=== PATIENT | male | born 1970 | race Caucasian/White ===

== ENCOUNTER 2017-02-23 21:38 | Observation (INO) | payer MEDICAID ==
[~2017-02-23] VITALS: Ht 182.9 cm; Wt 84.9 kg
[2017-02-23 21:39] VITALS: BP 153/93
--- OUTSIDE RECORDS SUMMARY | 2017-02-23 22:09 | External Medical Summary Rpt ---
Author Author [facility] Organization [facility] Address Unknown Phone Unavailable Care Team Providers Care Chute Puller Name Role Phone DR DINORA PCP [phone] Encounter [facility] [id number] Date(s): 10/08/16 - 10/08/[address] [facility] [address] [place] [address]- Discharge Diagnosis: Chest pain Discharge Disposition: OP Self Care or Home Attending Physician: CARLOS AKHTAR MD Admitting Physician: CARLOS AKHTAR MD Referring Physician: CARLOS AKHTAR MD Reason for Visit CP. HEART PT Vital Signs Most recent 1 2 3 to oldest [Reference Range]: Temperature Oral Source (10/08/16 11:34 AM) Temperature Fahrenheit Mode (10/08/16 11:34 AM) Temperature, 97.8 Deg F Fahrenheit (10/08/16 11:34 AM) [96.8-99.7 Deg F] Clinical 36.6 Deg C Temperature, (10/08/16 11:34 AM) C Peripheral 96 bpm Pulse Rate (10/08/16 11:34 AM) [60-100 bpm] Heart Rate 66 bpm 64 bpm 74 bpm Monitored (10/08/16 4:20 PM) (10/08/16 3:00 PM) (10/08/16 2:00 PM) [60-100 bpm] Respiratory 16 Breaths/Min 13 Breaths/Min 27 Breaths/Min Rate [14-20 (10/08/16 4:20 PM) *LOW* *HI* Breaths/Min] (10/08/16 3:00 PM) (10/08/16 2:00 PM) Blood 173/84 mmHg 152/84 mmHg 127/83 mmHg Pressure *HI* *HI* (10/08/16 2:00 PM) [90-140/60-9 (10/08/16 4:20 PM) (10/08/16 3:00 PM) 0 mmHg] Mean 116 107 99 Arterial (10/08/16 4:20 PM) (10/08/16 3:00 PM) (10/08/16 2:00 PM) Pressure (MAP)-BMDI Oxygen 92 % 91 % 95 % Saturation *LOW* *LOW* (10/08/16 2:00 PM) [94-100 %] (10/08/16 4:20 PM) (10/08/16 3:00 PM) Oxygen Room air Therapy Mode (10/08/16 11:34 AM) Height Stated Source (10/08/16 11:34 AM) Height Entry [place] Format (10/08/16 11:34 AM) Height/Lengt 6 ft h, [place] (10/08/16 11:34 AM) (ft) Height/Lengt 1 Inch h [place] (10/08/16 11:34 AM) CLINICALHEIG 185.42 cm HT (10/08/16 11:34 AM) Weight Stated Source, ED (10/08/16 11:34 AM) [place] Body 79 kg Weight (10/08/16 11:34 AM) Problem List Condition Effective Status Health Informant Dates Status Old Active myocardial infarction(C onfirmed) HTN Active (hypertensio n)(Confirmed ) Allergies, Adverse Reactions, Alerts No Known Medication Allergies Medications No data available for this section Results GENERAL CHEMISTRY Most recent 1 2 to oldest [Reference Range]: Sodium Level 136 mmol/L [136-146 (10/08/16 11:38 AM) mmol/L] Potassium 4.3 mmol/L Level (10/08/16 11:38 AM) [3.5-5.1 mmol/L] Chloride 101 mmol/L Level *LOW* [102-112 (10/08/16 11:38 AM) mmol/L] Carbon 22 mmol/L Dioxide (10/08/16 11:38 AM) Level [21-32 mmol/L] Anion Gap 17 [9-20] (10/08/16 11:38 AM) Glucose 193 mg/dL Level *HI* [74-106 (10/08/16 11:38 AM) mg/dL] Blood Urea 18 mg/dL Nitrogen (10/08/16 11:38 AM) [7-22 mg/dL] Creatinine 0.90 mg/dL Level (10/08/16 11:38 AM) [0.70-1.30 mg/dL] eGFR 111 mL/min/1.73m2 [>=60 (10/08/16 11:38 AM) mL/min/1.73m 2] eGFR 91 mL/min/1.73m2 NonAfrican (10/08/16 11:38 AM) [>=60 mL/min/1.73m 2] Bun/Creatini 20.0 ne (10/08/16 11:38 AM) [8.0-20.0] Calcium 8.9 mg/dL Level (10/08/16 11:38 AM) [8.5-10.1 mg/dL] CARDIAC SPECIFIC MARKERS Most recent 1 2 to oldest [Reference Range]: Troponin I <0.015 ng/mL <0.015 ng/mL Ultra (10/08/16 2:20 PM) (10/08/16 11:38 AM) [0.015-0.045 ng/mL] HEMATOLOGY Most recent 1 2 to oldest [Reference Range]: WBC [4.2-9.1 7.0 K/uL K/uL] (10/08/16 11:38 AM) RBC 4.98 Million/uL [4.63-6.08 (10/08/16 11:38 AM) Million/uL] Hgb 14.7 g/dL [13.7-17.5 (10/08/16 11:38 AM) g/dL] Hct 44.6 % [40.1-51.0 (10/08/16 11:38 AM) %] MCV 89.6 fL [79.0-94.8 (10/08/16 11:38 AM) fL] MCH 29.5 pg [25.6-32.2 (10/08/16 11:38 AM) pg] MCHC 33.0 Gram/dL [32.2-36.5 (10/08/16 11:38 AM) Gram/dL] Platelet 230 K/uL Count (10/08/16 11:38 AM) [163-369 K/uL] MPV 10.4 fL [9.4-12.4 (10/08/16 11:38 AM) fL] RDW 13.2 % [11.6-14.4 (10/08/16 11:38 AM) %] Neut % 57.5 % [34.0-71.0 (10/08/16 11:38 AM) %] Neut # 4.02 K/uL [1.56-6.13 (10/08/16 11:38 AM) K/uL] Lymph % 31.3 % [19.3-53.1 (10/08/16 11:38 AM) %] Lymph # 2.19 x10(3)/uL [1.00-3.90 (10/08/16 11:38 AM) x10(3)/uL] Darke % 7.2 % [3.0-9.0 %] (10/08/16 11:38 AM) [place]ke # 0.50 K/uL [0.16-1.00 (10/08/16 11:38 AM) K/uL] Eos % 3.0 % [0.0-7.0 %] (10/08/16 11:38 AM) Eos # 0.21 x10(3)/uL [0.00-0.80 (10/08/16 11:38 AM) x10(3)/uL] Baso % 0.9 % [0.0-1.5 %] (10/08/16 11:38 AM) Baso # 0.06 x10(3)/uL [0.00-0.20 (10/08/16 11:38 AM) x10(3)/uL] Slide Review No (10/08/16 11:38 AM) IG# 0.01 x10(3)/uL [0.00-0.05 (10/08/16 11:38 AM) x10(3)/uL] IG% 0.10 % [0.00-0.60 (10/08/16 11:38 AM) %] Immunizations No data available for this section Procedures Procedure Date Related Body Site Diagnosis PTCA - Percutaneous transluminal coronary angioplasty Social History Social History Response Type Smoking Status Current every day smoker Assessment and Plan No data available for this section Hospital Discharge Instructions No data available for this section
--- OUTSIDE RECORDS SUMMARY | 2017-02-23 22:09 | External Medical Summary Rpt ---
Author Author [facility] Organization [facility] Address Unknown Phone Unavailable Care Team Providers Care Room Cooler Installer Name Role Phone DR DINORA PCP [phone] Encounter [facility] [id number] Date(s): 10/08/16 - 10/08/16 [facility] [address] [place] [address]- [phone] Discharge Diagnosis: Chest pain Discharge Disposition: OP [...] Stated Source (10/08/16 11:34 AM) Height Entry [place] Format (10/08/16 11:34 AM) Height/Lengt 6 ft h, [place] (10/08/16 11:34 AM) (ft) Height/Lengt 1 Inch h [place] (10/08/16 11:34 AM) CLINICALHEIG 185.42 cm HT (10/08/16 11:34 AM) Weight Stated Source, ED (10/08/16 11:34 AM) [place] Body 79 kg Weight (10/08/16 11:34 AM) [...] 2.19 x10(3)/uL [1.00-3.90 (10/08/16 11:38 AM) x10(3)/uL] [place] % 7.2 % [3.0-9.0 %] (10/08/16 11:38 AM) [place] # 0.50 K/uL [0.16-1.00 (10/08/16 11:38 AM) [...]
--- OUTSIDE RECORDS SUMMARY | 2017-02-23 22:10 | External Medical Summary Rpt | CCD ---
Author Author , [facility] Organization [facility] Address Unknown Phone Care Team Providers Care Sky Cap Name Role Phone [facility] Unavailable [facility]available [facility] AD[facility], ADAL Unavailable Unavailable JESSICA, JESSICA Unavailable Unavailable [facility] Unavailable Unavailable INC, [facility], Unavailable Unavailable [facility] Unavailable Unavailable [facility], [facility] TERRENCE, TERRENCE Unavailable Unavailable SCALF, SCALF Unavailable Unavailable JOSE D, JOSE D Unavailable Unavailable [facility], Unavailable Unavailable [facility] KAY, KAY Unavailable Unavailable Purpose Continuity of Care Document - 09-08-2016 through 2016 Problems Code Diagnosis DOS Provider Status K219 GASTRO-ESOP 12-22-2016 [facility] REFLUX N EMERGENCY DISEASE PHYS WITHOUT ESOPHAGITIS R071 CHEST PAIN 12-22-2016 [facility] ON N EMERGENCY BREATHING PHYS R0789 OTHER CHEST 12-12-2016 [facility] PAIN N EMERGENCY PHYS R079 CHEST PAIN 12-12-2016 [facility] [place] UNSPECIFIED RADIOLOGY E785 HYPERLIPIDE 12-08-2016 [facility]ARA PHYSICIANS UNSPECIFIED GROUP I10 ESSENTIAL 12-08-2016 [facility] HYPERTENSIO INC N I119 HYPERTENSIV 12-08-2016 [facility] E HEART PHYSICIANS DISEASE GROUP WITHOUT HEART FAILURE 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 I252 OLD 10-08-2016 [facility] INFARCTION R072 PRECORDIAL 10-08-2016 [facility] [place] PAIN RADIOLOGY R9431 ABNORMAL 10-08-2016 [facility] IOGRAM MEDICAL G G4733 OBSTRUCTIVE 09-14-2016 [facility] APNEA ADULT INC PEDIATRIC R0602 SHORTNESS 09-14-2016 [facility] OF BREATH PHYSICIANS GROUP Z720 TOBACCO USE 09-14-2016 [facility] I10 Essential (primary) hypertensio n I25.2 Old myocardial infarction R07.9 Chest pain, unspecified Medications Na ND Rx Da Fi Fi Am Da Di Ph RX Ph St me C No te ll ll ou ys ag ar # ys at rm s nt no ma ic us Or Da si cy ia de te s n re d LO 65 09 10 30 30 00 EA Ac SA 86 -0 -[address] ti RT 20 9- 3- 00 00 SI ve AN 20 20 20 49 DE 39 17 17 64 PO 0 27 PH TA AR SS MA IU CY M 10 OF 0 CY MG NT HI TA AN B A IN C CA 00 09 10 60 30 00 EA Ac RV 09 -0 -[address] ti ED 37 9- 3- 00 00 SI ve IL 29 20 20 49 DE OL 50 17 17 64 1 28 PH 12 AR .5 MA CY MG OF TA CY BL NT ET HI AN A IN C 00 09 10 30 30 00 EA Ac PI 60 -0 -[address] ti RI 30 9- 3- 00 00 SI ve N 02 20 20 48 DE EC 62 17 17 67 2 66 PH 81 AR MA MG CY TA OF BL CY ET NT HI AN A IN C AT 60 09 10 30 30 00 EA Ac OR 50 -0 -[address] ti VA 52 5- 6- [address] 58 20 20 48 DE AT 00 17 17 67 IN 9 65 PH AR 40 MA CY MG OF TA CY BL NT ET HI AN A IN C LA 55 09 10 14 14 00 EA Ac NS 11 -0 -[address] ti OP 10 5- 6- 00 00 SI ve RA 39 20 20 50 DE ZO 90 17 17 04 LE [address] MA CY 30 OF MG CY NT CA HI PS AN UL A E IN C AM 00 08 09 30 30 00 EA Ac LO 37 -2 -[address] ti DI 85 1- 2- 00 00 SI ve PI 21 20 20 49 DE NE 00 17 17 86 5 05 PH BE AR SY MA LA CY TE OF 10 CY NT MG HI AN TA A B IN C AM 00 08 09 30 30 00 EA Ac LO 37 -0 -[address] ti DI 85 1- 1- 00 00 SI ve PI 20 20 20 49 DE NE 90 17 17 64 5 26 PH BE AR SY MA LA CY TE 5 OF CY MG NT HI TA AN B A IN C LO 65 08 09 30 30 00 EA Ac SA 86 -0 -[address] ti RT 20 1- 1- 00 00 SI ve AN 20 20 20 49 DE 39 17 17 64 PO 0 27 PH TA AR SS MA IU CY M 10 OF 0 CY MG NT HI TA AN B A IN C CA 00 08 09 60 30 00 EA Ac RV 09 -0 -[address] ti ED 37 1- 1- 00 00 SI ve IL 29 20 20 49 DE OL 50 17 17 64 1 28 PH 12 AR .5 MA CY MG OF TA CY BL NT ET HI AN A IN C AT 60 07 08 30 30 00 EA Ac OR 50 -2 -[address] ti VA 52 6- 5- [address] 58 20 20 48 DE AT 00 17 17 67 IN 9 65 PH AR 40 MA CY MG OF TA CY BL NT ET HI AN A IN C BU 43 07 08 60 30 00 EA Ac DE 59 -1 -[address] ti OP 80 8- 8- 00 00 SI ve IO 53 20 20 49 DE N 70 17 17 47 HC 5 83 PH L AR SR MA CY 15 0 OF MG CY NT TA HI BL AN ET A IN C LO 65 07 08 30 30 00 EA Ac SA 86 -1 -[address] ti RT 20 8- 8- 00 00 SI ve AN 20 20 20 49 DE 23 17 17 47 PO 0 79 PH TA AR SS MA IU CY M 50 OF CY MG NT HI TA AN B A IN C CA 00 07 08 60 30 00 EA Ac RV 09 -1 -[address] ti ED 30 8- 8- 00 00 SI ve IL 13 20 20 49 DE OL 50 17 17 47 1 80 PH 6. AR 25 MA CY MG OF TA CY BL NT ET HI AN A IN C 00 06 08 30 30 00 EA Ac PI 60 -2 -[address] ti RI 30 9- 4- 00 00 SI ve N 02 20 20 48 DE EC 62 17 17 67 2 66 PH 81 AR MA MG CY TA OF BL CY ET NT HI AN A IN C AT 60 06 08 30 30 00 EA Ac OR 50 -2 -[address] ti VA 52 9- 4- [address] 58 20 20 48 DE AT 00 17 17 67 IN 9 65 PH AR 40 MA CY MG OF TA CY BL NT ET HI AN A IN C 00 05 06 30 30 00 EA Ac PI 60 -0 -[address] ti RI 30 9- 9- 00 00 SI ve N 02 20 20 48 DE EC 62 17 17 67 2 66 PH 81 AR MA MG CY TA OF BL CY ET NT HI AN A IN C AT 60 05 06 30 30 00 EA Ac OR 50 -0 -[address] ti VA 52 9- 9- [address] 58 20 20 48 DE AT 00 17 17 67 IN 9 65 PH AR 40 MA CY MG OF TA CY BL NT ET HI AN A IN C Procedures Procedure DOS Code Location Performer Comment RADIOLOGI 86668 [facility] [place] [facility] C 7 RADIOLOGY EXAMINATI [place] [address] [facility] THYROXINE 7 [facility] TOTAL INC INC LIPID 47023 B[facility] PANEL 7 [facility] INC INC BILIRUBIN 02315 [facility] DIRECT 7 [facility] INC INC ECG 48117 [facility] ROUTINE 7 [facility] ECG INC INC W/LEAST 12 LDS TRCG ONLY W/O I&R COLLECTIO 51253 [facility] N VENOUS 7 [facility] BLOOD INC INC VENIPUNCT URE COMPREHEN 45139 [facility] SIVE 7 [facility] METABOLIC INC INC PANEL C-REACTIV 98362 [facility] E PROTEIN 7 [facility] INC INC THYROID 99066 [facility] HORM 7 [facility] UPTK/THYR INC INC OID HORMONE BINDING RATIO BLOOD 33971 [facility] COUNT 7 [facility] COMPLETE INC INC AUTO&AUTO DIFRNTL WBC ECG 56410 [facility] ROUTINE 7 [facility] ECG INC INC W/LEAST 12 LDS TRCG ONLY W/O I&R COLLECTIO 17923 [facility] N VENOUS [address] [place] [address] BLOOD VENIPUNCT URE ECG [address] [facility] ECG W/LEAST 12 LDS TRCG ONLY W/O I&R BLOOD [address] COMPLETE AUTO&AUTO DIFRNTL WBC ECG 03475 [facility] JESSICA ROUTINE 7 [facility] MEDICAL W/LEAST G 12 LDS [place] [address] [facility] TROPONIN [address] [place] [address] QUANTITAT NICK RADIOLOGI 65541 [facility] C EXAM [address] [place] [address] CHEST 2 VIEWS FRONTAL&L ATERAL BASIC 30921 [facility] METABOLIC [address] [place] [address] PANEL CALCIUM TOTAL TECHNETIU A9502 [facility] Marie TC-99M 7 [facility] TETROFOSM INC INC IN DX PER STUDY DOSE ECHO 44702 [facility] TTHRC R-T 7 [facility] 2D INC INC W/WOM-MOD E COMPL SPEC&COLR D MYOCARDIA 56336 [facility] L SPECT 7 [facility] MULTIPLE INC INC STUDIES CV STRS 74490 [facility] TST 7 [facility] XERS&/OR INC INC RX CONT ECG TRCG ONLY ECG 58105 [facility] ROUTINE 7 [facility] ECG INC INC W/LEAST 12 LDS TRCG ONLY W/O I&R Encounters Encounter Start End Date Code Location Performer Type Date EMERGENCY 11862 [facility] DEPT 7 7 [place] VISIT EMERGENCY HIGH PHYS SEVERITY& THREAT [facility] EMERGENCY 66967 [facility] DEPT 7 7 [place] VISIT EMERGENCY HIGH PHYS SEVERITY& THREAT [facility] - [place] 7 [facility] OUTPATIEN [facility] OFFICE 04015 [facility] 7 7 PHYSICIAN T [facility]ISIT S GROUP 25 MINUTES [facility]OSPITAL [facility] - [place] 7 [facility] OUTPATIEN [facility] EMERGENCY 22765 [facility]NOTE 3] DEPT 7 7 [place] VISIT EMERGENCY HIGH PHYS SEVERITY& THREAT [facility] [address] [facility] Dav[facility] 7 [facility] OUTPATIEN [facility] BRIAN Vera [address] [facility] T
--- OUTSIDE RECORDS SUMMARY | 2017-02-23 22:10 | External Medical Summary Rpt | CCD ---
Author Author , [facility] Organization [facility] Address Unknown Phone Care Team Providers Care Digital Imaging Technician Name Role Phone [facility], Unavailable Unavailable [facility] ADAL, ADAL Unavailable Unavailable JESSICA, JESSICA Unavailable Unavailable [facility] Unavailable Un[facility] INC, [facility], Unavailable Unavailable [facility] Unavailable Unavailable MEDICAL G, [facility] MEDICAL G TERRENCE, TERRENCE Unavailable Unavailable SCALF, SCALF Unavailable Unavailable JOSE D, JOSE D Unavailable Unavailable [facility], Unavailable Unavailable [facility] KAY, KAY Unavailable Unavailable Purpose Continuity of Care Document - 09-08-2016 through 2016 Problems Code Diagnosis DOS Provider Status K219 GASTRO-ESOP 12-22-2016 [facility] REFLUX N EMERGENCY DISEASE PHYS WITHOUT ESOPHAGITIS R071 CHEST PAIN 12-22-2016 [facility] ON N EMERGENCY BREATHING PHYS R0789 OTHER CHEST 12-12-2016 [facility] PA[facility] N EMERGENCY PHYS R079 CHEST PAIN 12-12-2016 [facility] [place] UNSPECIFIED RADIOLOGY E785 HYPERLIPIDE 12-08-2016 [facility] UNSPECIFIED GROUP I10 ESSENTIAL 12-08-2016 [facility] HYPERTENSIO INC N I119 HYPERTENSIV 12-08-2016 [facility] E HEART PHYSICIANS DISEASE GROUP WITHOUT HEART FAILURE I2510 ASHD [facility] [place] 12-08-2016 [facility] CORONARY 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 I252 OLD 10-08-2016 [facility] INFARCTION R072 PRECORDIAL 10-08-2016 [facility] [place] PA[place] RADIOLOG[place] R9431 ABNORMAL 10-08-2016 [facility] IOGRAM MEDICAL G G4733 OBSTRUCTIVE 09-14-2016 [facility] APNEA ADULT INC PEDIATRIC R0602 SHORTNESS 09-14-2016 [facility] GROUP Z720 TOBACCO USE [...] 07 08 60 30 00 EA Ac UT 59 -1 -[address] ti [...] Procedure DOS Code Location Performer Comment RADIOLOGI 92046 [facility] [place] [facility] 7 RADIOLOGY EXAMINATI ON [place] [address] [facility] THYROXINE 7 [facility] TOTAL INC INC LIPID 85561 [facility] PANEL 7 [facility] INC INC BILIRUBIN 73887 B[facility] DIRECT 7 [facility] INC INC ECG 25611 [facility] ROUTINE 7 [facility] ECG INC INC W/LEAST 12 LDS TRCG ONLY W/O I&R COLLECTIO 84273 [facility] N VENOUS 7 [facility] BLOOD INC INC VENIPUNCT URE COMPREHEN 37813 [facility] SIVE 7 [facility] METABOLIC INC INC PANEL C-REACTIV 77598 [facility] E PROTEIN 7 [facility] INC INC THYROID 86478 [facility] HORM 7 [facility] UPTK/THYR INC INC OID HORMONE BINDING RATIO BLOOD 30903 [facility] COUNT 7 [facility]OS[facility] COMPLETE INC INC AUTO&AUTO DIFRNTL WBC ECG 49064 [facility] ROUTINE 7 [facility] ECG INC INC W/LEAST 12 LDS TRCG ONLY W/O I&R COLLECTIO 71869 [facility] N VENOUS [address] [place] [address] BLOOD VENIPUNCT URE ECG [address] [facility] ECG W/LEAST 12 LDS TRCG ONLY W/O I&R BLOOD [address] COMPLETE AUTO&AUTO DIFRNTL WBC ECG 34531 [facility] JESSICA ROUTINE 7 [facility] ECG MEDICAL W/LEAST G 12 LDS I&[place] [address] [facility] TROPONIN [address] [place] [address] QUANTITAT NICK RADIOLOGI 72546 [facility] C EXAM [address] [place] [address] CHEST 2 VIEWS FRONTAL&L ATERAL BASIC 19138 [facility] METABOLIC [address] [place] [address] PANEL CALCIUM TOTAL TECHNETIU A9502 [facility] Marie TC-99M 7 [facility] TETROFOSM INC INC IN DX PER STUDY DOSE ECHO 19383 [facility] TTHRC R-T 7 [facility] 2D INC INC W/WOM-MOD E COMPL SPEC&COLR D MYOCARDIA 62184 [facility] L SPECT 7 [facility]OS[facility] MULTIPLE INC INC STUDIES CV STRS 73076 [facility] TST 7 [facility] XERS&/OR INC INC RX CONT ECG TRCG ONLY ECG 28204 [facility] ROUTINE 7 [facility] ECG INC INC W/LEAST 12 LDS TRCG ONLY W/O I&R Encounters Encounter Start End Date Code Location Performer Type Date EMERGENCY 75181 [facility] DEPT 7 7 [place] VISIT EMERGENCY HIGH PHYS SEVERITY& THREAT [facility] EMERGENCY [address] [facility] DEPT 7 7 [place] VISIT EMERGENCY HIGH PHYS SEVERITY& THREAT [facility] - [place] 7 [facility] OUTPATIEN [facility] OFFICE [address] [facility] 7 7 PHYSICIAN T VISIT S GROUP 25 MINUTES HOSPITAL [facility] - [place] 7 [facility] OUTPATIEN [facility] EMERGENCY [address]1687 [facility] DEPT 7 7 [place] VISIT EMERGENCY HIGH PHYS SEVERITY& THREAT [facility] [address] [facility] 7 [facility] OUTPATIEN [facility] BRIAN Vera 7 [facility] T
--- OUTSIDE RECORDS SUMMARY | 2017-02-23 22:11 | External Medical Summary Rpt | CCD ---
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 Care Refrigerator Car Icer Name Role Phone JOEL, MALDONADO Unavailable Unavailable [facility], Unavailable Unavailable [facility] ADAL, ADAL Unavailable Unavailable JESSICA, JESSICA Unavailable Unavailable [facility] Unavailable Unavailable INC, [facility], Unavailable Unavailable [facility] Unavailable Unavailable MEDICAL G, [facility] TERRENCE, TERRENCE Unavailable Unavailable SCALF, SCALF Unavailable Unavailable JOSE D, JOSE D Unavailable Unavailable [facility], Unavailable Unavailable [facility], Unavailable Unavailable [facility] KAY, KAY Unavailable Unavailable [facility], Unavailable Unavailable [facility] Purpose Continuity of Care Document - 09-08-2016 through 2016 Problems Code Diagnosis DOS Provider Status K219 GASTRO-ESOP 12-22-2016 [facility] REFLUX N EMERGENCY DISEASE PHYS WITHOUT ESOPHAGITIS R071 CHEST PAIN 12-22-2016 [facility] ON N EMERGENCY BREATHING PHYS R0789 OTHER CHEST 12-12-2016 [facility] N EMERGENCY PHYS R079 CHEST PAIN 12-12-2016 [facility] UNSPECIF[facility] RADIOLOGY E785 HYPERLIPIDE 12-08-2016 [facility] UNSPECIFIED GROUP I10 ESSENTIAL 12-08-2016 [facility] HYPERTENSIO INC N I119 HYPERTENSIV 12-08-2016 [facility] E HEART PHYSICIANS DISEASE GROUP WITHOUT HEART FAILURE I2510 ASHD [place]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 IOGRAM MEDICAL G G4733 OBSTRUCTIVE 09-14-2016 [facility] APNEA ADULT INC PEDIATRIC R0602 SHORTNESS 09-14-2016 [facility] OF BREATH PHYSICIANS GROUP Z720 TOBACCO USE 09-14-2016 [facility] Medications Na ND Rx Da Fi Fi [...] ET NT HI AN A IN C LA 55 09 10 14 14 00 EA Ac NS 11 -0 -[address] ti OP 10 5- 6- 00 00 SI ve RA 39 20 20 50 DE ZO 90 17 17 04 LE [address] MA CY 30 OF MG CY NT CA HI PS AN UL A E IN C AT 60 09 10 30 30 00 EA Ac OR 50 -0 -[address] ti VA 52 5- 6- [address] 58 20 20 48 DE AT 00 17 17 67 IN 9 65 PH AR 40 MA CY MG OF TA CY BL NT ET HI AN A IN C AM 00 08 09 30 [...] NT ET HI AN A IN C CA 00 07 08 [...] 07 08 60 30 00 EA Ac NE 59 -1 -[address] ti [...] HI TA AN B A IN C 00 06 08 30 [...] -[address] ti VA [address] 58 20 20 48 DE AT 00 17 17 67 IN 9 65 PH AR 40 MA CY MG OF TA CY BL NT ET HI AN A IN C 00 05 06 30 30 00 EA Ac PI 60 -0 -[address] ti RI 30 9 00 SI ve N 02 20 20 48 DE EC 62 17 17 67 2 66 PH 81 AR MA MG CY TA OF BL CY ET NT HI AN A IN C Procedures Procedure DOS Code Location Performer Comment RADIOLOGI 31290 [facility] 7 RADIOLOGY EXAMINATI ON CHEST SINGLE VIEW FRONTAL BILIRUBIN 28794 [facility] DIRECT 7 [facility] INC INC COLLECTIO 47380 [facility] N VENOUS 7 [facility] BLOOD INC INC VENIPUNCT URE C-REACTIV 27332 [facility] E PROTEIN 7 [facility] INC INC COMPREHEN 70257 B[facility] SIVE 7 [facility] [place] [address] [facility] THYROXINE 7 [facility] TOTAL INC INC ECG 48319 B[facility] ROUTINE 7 [facility] ECG INC INC W/LEAST 12 LDS TRCG ONLY W/O I&R BLOOD 38030 [facility] COUNT 7 [facility] COMPLETE INC INC AUTO&AUTO DIFRNTL WBC THYROID 09452 [facility] HORM 7 [facility] UPTK/THYR INC INC OID HORMONE BINDING RATIO LIPID 20346 [facility] PANEL 7 [facility] INC INC ECG 49624 [facility] ROUTINE 7 [facility] ECG INC INC W/LEAST 12 LDS TRCG ONLY W/O I&[place] [address] [facility] TROPONIN 7 [facility] QUANTITAT NICK BLOOD [address] COMPLETE AUTO&AUTO DIFRNTL WBC RADIOLOGI 46949 [facility] EXAM 7 RADIOLOGY LD IV CHEST 2 VIEWS FRONTAL&L ATERAL ECG 48747 ZOE LOPEZ ROUTINE 7 [facility] ECG MEDICAL W/LEAST G 12 LDS I&R ONLY COLLECTIO 99015 [facility] N VENOUS [address] [place] [address] BLOOD VENIPUNCT URE ECG 77534 [facility] ROUTINE [address] [place] [address] ECG W/LEAST 12 LDS TRCG ONLY W/O I&R BASIC 98688 [facility] METABOLIC [address] [place] [address] PANEL CALCIUM TOTAL TECHNETIU A9502 [facility] M TC-99M 7 [facility] TETROFOSM INC INC IN DX PER STUDY DOSE CV STRS 21078 [facility] TST 7 [facility] XERS&/OR INC INC RX CONT ECG TRCG ONLY ECHO 40410 [facility] TTHRC R-T 7 [facility] 2D INC INC W/WOM-MOD E COMPL SPEC&COLR D MYOCARDIA 98506 [facility] SRIVASTAV L SPECT 7 PHYSICIAN A MULTIPLE S GROUP STUDIES ECG 69683 [facility] ROUTINE 7 [facility] ECG INC INC W/LEAST 12 LDS TRCG ONLY W/O I&R Encounters Encounter Start End Date Code Location Performer Type Date EMERGENCY 46691 [facility] DEPT 7 7 [place] VISIT EMERGENCY HIGH PHYS SEVERITY& THREAT [facility] EMERGENCY 25565 [facility] DEPT 7 7 [place] VISIT EMERGENCY HIGH PHYS SEVERITY& THREAT [facility] OFFICE 53720 [facility] 7 7 PHYSICIAN T VISIT S GROUP 25 MINUTES [facility] [place] 7 [facility] [place] [facility] 55869 [facility] DEPT 7 7 [place] VISIT EMERGENCY HIGH PHYS SEVERITY& THREAT [facility] [address] [facility] [place] 7 [facility] OUTPATIEN [facility] B[facility]AN - 7 [facility] T
--- OUTSIDE RECORDS SUMMARY | 2017-02-23 22:11 | External Medical Summary Rpt | CCD ---
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 Name Role Phone JOEL, MALDONADO Unavailable Unavailable [facility], Unavailable Unavailable [facility] ADAL, AADL Unavailable Unavailable JESSICA, JESSICA Unavailable Unavailable [facility] Unavailable Unavailable INC, [facility], Unavailable Unavailable [facility] Unavailable Unavailable MEDICAL G, [facility] TERRENCE, TERRENCE Unavailable Unavailable SCALF, SCALF Unavailable Unavailable JOSE D, JOSE D Unavailable Unavailable [facility], Unavailable Unavailable [facility], Unavailable Unavailable [facility] KAY, KAY Unavailable Unavailable [facility], Unavailable Unavailable [facility] IV Purpose Continuity of Care Document - 09-08-2016 through 2016 Problems Code Diagnosis DOS Provider Status K219 GASTRO-ESOP 12-22-2016 [facility] REFLUX N EMERGENCY DISEASE PHYS WITHOUT ESOPHAGITIS R071 CHEST PAIN 12-22-2016 [facility] EMERGENCY BREATHING PHYS R0789 OTHER CHEST 12-12-2016 [facility] N EMERGENCY PHYS R079 CHEST PAIN 12-12-2016 [facility]PEC[facility] RADIOLOGY E785 HYPERLIPIDE 12-08-2016 [facility] UNSPECIFIED GROUP I10 ESSENTIAL 12-08-2016 [facility] HYPERTENSIO INC N I119 HYPERTENSIV 12-08-2016 [facility] E HEART PHYSICIANS DISEASE GROUP WITHOUT HEART FAILURE I2510 [facility] [place] 12-08-2016 [facility] CORONARY 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 R072 PRECORDIAL 10-08-2016 [facility] [place] [facility] RADI[facility] R9431 ABNORMAL 10-08-2016 [facility] IOGRAM MEDICAL G G4733 OBSTRUCTIVE 09-14-2016 [place] [facility] APNEA ADULT INC PEDIATRIC R0602 SHORTNESS 09-14-2016 [facility] OF [facility] PHYSICIANS GROUP Z720 TOBACCO USE 09-14-2016 [facility] Medications Na ND Rx Da Fi [...] 07 08 60 30 00 EA Ac ND 59 -1 -[address] ti [...] Procedure DOS Code Location Performer Comment RADIOLOGI 33461 [facility] [place] [facility] 7 RADIOLOGY EXAMINATI ON CHEST SINGLE VIEW FRONTAL BILIRUBIN 53160 [facility] DIRECT 7 [facility] INC INC COLLECTIO 28278 B[facility] N VENOUS 7 [facility] BLOOD INC INC VENIPUNCT URE C-REACTIV 54764 [facility] E PROTEIN 7 [facility] INC INC COMPREHEN 88810 [facility] SIVE 7 [facility] [place] [address] [facility] THYROXINE 7 [facility] TOTAL INC INC ECG 00528 [facility] ROUTINE 7 [facility] ECG INC INC W/LEAST 12 LDS TRCG ONLY W/O I&R BLOOD 95270 [facility] COUNT 7 [facility] COMPLETE INC INC AUTO&AUTO DIFRNTL WBC THYROID 78252 [facility] HORM 7 [facility] UPTK/THYR INC INC OID HORMONE BINDING RATIO LIPID 30219 [facility] PANEL 7 [facility] INC INC ECG 19142 [facility] T[facility] ROUTINE 7 [facility] ECG INC INC W/LEAST 12 LDS TRCG ONLY W/O I&[place] [address] [facility] TROPONIN 7 [facility] QUANTITAT NICK BLOOD [address] COMPLETE AUTO&AUTO DIFRNTL WBC RADIOLOGI 53759 [facility] EXAM 7 RADIOLOGY LD IV CHEST 2 VIEWS FRONTAL&L ATERAL ECG 90274 ZOE LOPEZ ROUTINE 7 [facility] ECG MEDICAL W/LEAST G 12 LDS I&R ONLY COLLECTIO 07290 [facility] N VENOUS [address] [place] [address] BLOOD VENIPUNCT URE ECG 98082 [facility] ROUTINE [address] [place] [address] ECG W/LEAST 12 LDS TRCG ONLY W/O I&R BASIC 71020 [facility] METABOLIC [address] [place] [address] PANEL CALCIUM TOTAL TECHNETIU A9502 [facility] M TC-99M 7 [facility] TETROFOSM INC INC IN DX PER STUDY DOSE CV STRS 04068 [facility] TST 7 [facility] XERS&/OR INC INC RX CONT ECG TRCG ONLY ECHO 88354 [facility] BRAIN TTHRC R-T 7 [facility] 2D INC INC W/WOM-MOD E COMPL SPEC&COLR D MYOCARDIA 58061 [facility] SRIVASTAV L SPECT 7 PHYSICIAN A MULTIPLE S GROUP STUDIES ECG 00130 [facility] ROUTINE 7 [facility] ECG INC INC W/LEAST 12 LDS TRCG ONLY W/O I&R Encounters Encounter Start End Date Code Location Performer Type Date EMERGENCY 56567 [facility] DEPT 7 7 [place] VISIT EMERGENCY HIGH PHYS SEVERITY& THREAT [facility] 05387 [facility] DEPT 7 7 [place] VISIT EMERGENCY HIGH PHYS SEVERITY& THREAT [facility] OFF[facility] 66337 [facility] 7 7 PHYSICIAN T VISIT S GROUP 25 MINUTES [facility] [place] 7 [facility] [place] [facility] 90633 [facility] DEPT 7 7 [place] VISIT EMERGENCY HIGH PHYS [facility]VERITY& TH[facility]AT [facility] [address] [facility] [place] [facility] OUTPATIEN [facility] BRIAN - [address] [facility] T
--- OUTSIDE RECORDS SUMMARY | 2017-02-23 22:12 | External Medical Summary Rpt ---
Author Author [employer], [employer] Organization [employer] Address Unknown Phone Unavailable Results CBC W Auto Differential panel in Blood Observa Value Referen Units Interpr Notes Date tion ce etation Range Basophils 0 - 0.2 K/MM3 Normal No Dec 082016 [#/volume on in 12:59 PM ] in source Blood by data Automated count Basophils 0.1 - 2.0 % Normal No Dec 08 /2016 leukocyte on in 12:59 PM s in source Blood by data Automated count Eosinophi 0.0 - 0.4 K/mm3 Normal No Dec 08 ls 2016 [#/volume on in 12:59 PM ] in source Blood by data Automated count Eosinophi 0.1 - % Normal No Dec 08 ls/100 12.0 2016 leukocyte on in 12:59 PM s in source Blood by data Automated count Granulocy 1.3 - 8.0 K/mm3 Normal No Dec 08 aydin 2016 [#/volume on in 12:59 PM ] in source Blood by data Automated count Granulocy 37.0 - % Normal No Dec 08 aydin/100 80.0 2016 leukocyte on in 12:59 PM s in source Blood by data Automated count Hematocri 42.0 - % Normal No Dec 08 t [Volume 52.0 2016 on in 12:59 PM Fraction] source of Blood data Hemoglobi 14.1 - g/dL Low No Dec 08 n 18.0 2016 [Mass/vol on in 12:59 PM ume] in source Blood data Lymphocyt 0.7 - 4.5 K/mm3 Normal No Dec 08 es 2016 [#/volume on in 12:59 PM ] in source Unspecifi data ed specimen by Automated count Lymphocyt 10 - 50 % Normal No Dec 08 es 2016 [#/volume on in 12:59 PM ] in source Unspecifi data ed specimen by Automated count Erythrocy 27 - 31.2 pg Normal No Dec 08 te mean 2016 corpuscul on in 12:59 PM ar source hemoglobi data n [Entitic mass] Erythrocy 31.8 - g/dl Normal No Dec 08 te mean 35.4 inform2016 corpuscul on in 12:59 PM ar source hemoglobi data n concentra tion [Mass/vol ume] by Automated count Erythrocy 82.2 - fl Normal No Dec 08 te mean 97.8 inform2016 corpuscul on in 12:59 PM ar volume source [Entitic data volume] by Automated count Monocytes 0.1 - 1.0 K/mm3 Normal No Dec 08 inform2016 [#/volume on in 12:59 PM ] in source Blood by data Automated count Monocytes 1.7 - 9.3 % Normal No Dec 08 /100 inform 2017 leukocyte on in 12:59 PM s in source Blood by data Automated count Platelet 7.4 - fl Normal No Dec 08 mean 10.4 inform2016 volume on in 12:59 PM [Entitic source volume] data in Blood by Automated count Platelets 142 - 424 K/mm3 Normal No Dec 08 informati 2016 [#/volume on in 12:59 PM ] in source Blood data Erythrocy 4.6 - 6.2 M/mm3 Normal No Dec 08 aydin inform2016 [#/volume on in 12:59 PM ] in source Amniotic data fluid Erythrocy 11.5 - % Normal No Dec 08 te 17.5 inform2016 distribut on in 12:59 PM ion width source [Entitic data volume] by Automated count Leukocyte 4.8 - K/MM3 Normal No Dec 08 s 10.8 informati 2016 [#/volume on in 12:59 PM ] in source Blood data
--- OUTSIDE RECORDS SUMMARY | 2017-02-23 22:12 | External Medical Summary Rpt | CCD ---
Demographics Preferred Language Sami Marital Status Unknown Sikh Affiliation Unknown Race Unknown Ethnic Group Unknown Author Author , KATRIN WILKES Address Unknown Phone Immunization No patient found.
--- OUTSIDE RECORDS SUMMARY | 2017-02-23 22:12 | External Medical Summary Rpt | CCD ---
Demographics Preferred Language French Marital Status Unknown Orthodoxy Affiliation Unknown Race Unknown Ethnic Group Unknown Author Author , KATRIN WILKES Address Unknown Phone Immunization No patient found.
[2017-02-23 22:22] LABS: HEMOGLOBIN 13.1 g/dL (14.1-18.0); LYMPH # 2.4 K/mm3 (0.7-4.5); LYMPH % 30.6 % (10-50)
[2017-02-23 22:47] LABS: BUN 19 mg/dL (7-18); GFR (ESTIMATED) 65 ML/MIN (>60)
--- NOTE | 2017-02-23 23:52 | Emergency Room Report ---
History of Present Illness Time Seen by [id number] Presenting Problem in Triage Pt arrived:Walked Presenting Problem:CHEST PAIN STARTED AN HOUR AGO, WAS IN SHOWER, STATES FEELS TIGHT, FELT A LITTLE NAUSEATED, TINGLING IN LEFT HAND. 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 N Clinical Suspician of Infection? N Mental Status: 1 - Regular (Normal Baseline) Sepsis Risk:Low Sepsis Risk Have you (or family members/close friends) recently traveled outside the [place]? N If Yes, where/when: Have you had exposure to infectious disease within the past month? N TB? Other? Specify: Source patient, RN notes reviewed, family, RN/MD Exam Limitations no limitations Comment This is a 46-year-old male patient presented emergency room with episode of midsternal chest pain, radiating to the LEFT jaw and LEFT shoulder, associated with diaphoresis and shortness of breath, while taking a shower. Patient is known with history of coronary artery disease, s/p 2 cardiac stents, s/p massive cardiac attack approx. 10 years ago. Patient underwent the cardiac catheterization 3 months ago, by Dr. Christofer Priest, with no new coronary blockages. advised the patient was seen 2 weeks ago and [facility] ER with similar symptoms, and he was discharged home. ALLERGIES Coded Allergies: No Known Allergies (09/14/16) History Medical History General CAD? Yes Angina: Yes [place]: Yes Hypertension? Yes Hyperlipidemia? Yes CHF? No DVT? No PE? No COPD? No Asthma? No Anemia? No GERD? Yes Gastric ulcers? No GI Bleed? No Hernia? No Thyroid Problems? No Hypothyroidism? No CVA? No Seizures? No Diabetes? No Renal Insuffiency? No End Stage Renal Disease? No UTI? No Stones? No BPH? No GB Disease: No Nephritic Syndrome? No Asplenia? No Hepatitis? No Sickle Cell Disease? No Arthritis? No Migraines? No Cataracts? No Glaucoma? No MRSA? No HIV? No TB? No Anxiety? Yes Depression? Yes Cancer? No Immunization Hx DT/Tetanus 5-10 Years Ago Surgical Hx Previous Surgery?N Social History Smoking Hx Smoker: Current Every Day Smoker Tobacco: Yes Type Cigarettes Alcohol Alcohol: Yes Review of Systems All Other Systems Reviewed and Negative Cardiovascular chest pain Physical Exam Vital Signs Vital Signs Date Time Temp Pulse Resp B/P Pulse O2 O2 Flow FiO2 Ox Delivery Rate 02/23 2351 68 20 122/65 92 02/23 2252 85 12 134/83 94 02/239 99.2 78 18 153/93 96 General Appearance normal appearance, WD/WN Neck normal inspection, non-tender, supple, full range of motion Respiratory Status Yes: trachea midline, chest symmetrical, non tender chest. No: respiratory distress. Lung Sounds bilateral: normal breath sounds, lungs clear. 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 No Comment 23:55-case discussed Dr. Gamez, covering for Dr. Sanchez, advised patient's presentation and findings, agreeable with admission as well as cardiology consultation. Patient remains medically stable at this time, with no recurrent episodes of chest pain. Care transferred to Dr. Gamez/Dr. Sanchez at this time. I will write temporary admission orders per hospital protocol, with units nurse to contact PCP upon patient's arrival to the floor in order to obtain fully patient admission orders. Results/Orders Laboratory Tests 02/23/172199: Lactic Acid 1.0 02/23/172199: B-Natriuretic Peptide 59, Amylase 37, Lipase 169 02/23/172199: Sodium 143, Potassium 4.2, Chloride 105, Carbon Dioxide 29, BUN 19 H, Creatinine 1.2, Estimated Creat Clear 142, Estimated GFR (MDRD) 65, Glucose 109 H, Calcium 8.6, Total Bilirubin 0.3, AST 16, ALT 33, Alkaline Phosphatase 70, Creatine Kinase 213, CK-MB (CK-2) Rel Index 0.8, CK and CKMB Interp 1.7, Troponin I < 0.02, Total Protein 7.7, Albumin 4.1, Globulin 3.6 H, Albumin/ Globulin Ratio 1.1, D-Dimer < 100, WBC 7.8, RBC 4.35 L, Hgb 13.1 L, Hct 38.5 L, MCV 88.5, RDW 13.3, Plt Count 225, MPV 7.9, Gran % 61.1, Gran # 4.8, Lymphocytes % 30.6, Monocytes % 4.5, Eosinophils % 3.3, Basophils % 0.6, Lymphocytes # 2.4, Monocytes # 0.4, Eosinophils # 0.3, Basophils # 0.1, PUBS MCHC 34.2, MCH 30.2, Alcohols 12 Current Medication Orders Sig/Migue Start time Last Medication Dose Route Stop Time Status Admin Aspirin 325 MG ONCE ONE 02/23 2215 DC 02/23 PO 02/23 Aspirin 0 .STK-MED ONE 02/23 2211 DC .ROUTE Sodium Chloride 10 ML PRN PRN 02/23 2200 AC IV 02/25 2148 Orders Procedure Date/time Status Decision to admit 02/24 0000 Active LIPASE 02/24 2156 Complete DRUG ABUSE SCREEN (TRIAGE) 02/24 2156 Active D-DIMER 02/24 2156 Complete BRAIN NATRIURETIC PEPTIDE 02/24 2156 Complete AMYLASE 02/24 2156 Complete ALCOHOL 02/24 2156 Complete CULTURE, BLOOD 02/23 2153 Active LACTIC ACID 02/23 2151 Complete ELECTROCARDIOGRAM REQUEST 02/23 2149 Active CHEST(2 VIEWS-NOT PORTABLE) 02/23 2149 Active IV SALINE LOCK 02/23 2149 Active CBC WITH AUTO DIFF 02/23 2149 Complete CARDIAC ENZYMES 02/23 2149 Complete CHEM 12 PROFILE 02/23 2149 Complete CM/EKG CM/supplier quality Rhythm Normal Sinus Rhythm Rate 88 Ectopy No Comments No acute ischemic changes EKG rate, NSR, rhythm, no evid. of ischemic chgs, no ectopy, normal QRS, normal OH, normal EKG, no EKG for comparison, non-spec. ST/Twave chgs, ST elevation, ST depression, LBBB, RBBB, ectopy, abnormal Q waves XRAY/CT/US XRAY/CT/US XRAY chest XR interpretation by reviewed by me Xray Results no infiltrates, normal heart size, normal lung inflation leo Departure Departure Time of Disposition 0000 Disposition Still a Patient Clinical Impression Primary Impression: Chest pain Qualifiers: Chest pain type: unspecified Qualified Code: R07.9 - Chest pain, unspecified Condition STABLE ED Critical Care Critical Care No at 0008
--- NOTE | 2017-02-23 23:52 | Emergency Room Report ---
History of Present Illness Time Seen by [id number] Presenting Problem in Triage Pt arrived:Walked Presenting Problem:CHEST PAIN STARTED AN HOUR AGO, WAS IN SHOWER, STATES FEELS TIGHT, FELT A LITTLE NAUSEATED, TINGLING IN LEFT HAND. 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 N Clinical Suspician of Infection? N Mental Status: 1 - Regular (Normal Baseline) Sepsis Risk:Low Sepsis Risk Have you (or family members/close friends) recently traveled outside the [place]? N If Yes, where/when: Have you had exposure to infectious disease within the past month? N TB? Other? Specify: Source patient, RN notes reviewed, family, RN/MD Exam Limitations no limitations Comment This is a 46-year-old male patient presented emergency room with episode of midsternal chest pain, radiating to the LEFT jaw and LEFT shoulder, associated with diaphoresis and shortness of breath, while taking a shower. Patient is known with history of coronary artery disease, s/p 2 cardiac stents, s/p massive cardiac attack approx. 10 years ago. Patient underwent the cardiac catheterization 3 months ago, by Dr. Christofer Priest, with no new coronary blockages. advised the patient was seen 2 weeks ago and [facility] with similar symptoms, and he was discharged home. ALLERGIES Coded Allergies: No Known Allergies (09/14/16) History Medical History General CAD? Yes Angina: Yes ND: Yes Hypertension? Yes Hyperlipidemia? Yes CHF? No DVT? No PE? No COPD? No Asthma? No Anemia? No GERD? Yes Gastric ulcers? No GI Bleed? No Hernia? No Thyroid Problems? No Hypothyroidism? No CVA? No Seizures? No Diabetes? No Renal Insuffiency? No End Stage Renal Disease? No UTI? No Stones? No BPH? No GB Disease: No Nephritic Syndrome? No Asplenia? No Hepatitis? No Sickle Cell Disease? No Arthritis? No Migraines? No Cataracts? No Glaucoma? No MRSA? No HIV? No TB? No Anxiety? Yes Depression? Yes Cancer? No Immunization Hx DT/Tetanus 5-10 Years Ago Surgical Hx Previous Surgery?N Social History Smoking Hx Smoker: Current Every Day Smoker Tobacco: Yes Type Cigarettes Alcohol Alcohol: Yes Review of Systems All Other Systems Reviewed and Negative Cardiovascular chest pain Physical Exam Vital Signs Vital Signs Date Time Temp Pulse Resp B/P Pulse O2 O2 Flow FiO2 Ox Delivery Rate 02/23 2351 68 20 122/65 92 02/23 2252 85 12 134/83 94 02/239 99.2 78 18 153/93 96 General Appearance normal appearance, WD/WN Neck normal inspection, non-tender, supple, full range of motion Respiratory Status Yes: trachea midline, chest symmetrical, non tender chest. No: respiratory distress. Lung Sounds bilateral: normal breath sounds, lungs clear. 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 No Comment 23:55-case discussed Dr. Gamez, covering for Dr. Sanchez, advised patient's presentation and findings, agreeable with admission as well as cardiology consultation. Patient remains medically stable at this time, with no recurrent episodes of chest pain. Care transferred to Dr. Gamez/Dr. Sanchez at this time. I will write temporary admission orders per hospital protocol, with units nurse to contact PCP upon patient's arrival to the floor in order to obtain fully patient admission orders. Results/Orders Laboratory Tests 02/23/172199: Lactic Acid 1.0 02/23/172199: B-Natriuretic Peptide 59, Amylase 37, Lipase 169 02/23/172199: Sodium 143, Potassium 4.2, Chloride 105, Carbon Dioxide 29, BUN 19 H, Creatinine 1.2, Estimated Creat Clear 142, Estimated GFR (MDRD) 65, Glucose 109 H, Calcium 8.6, Total Bilirubin 0.3, AST 16, ALT 33, Alkaline Phosphatase 70, Creatine Kinase 213, CK-MB (CK-2) Rel Index 0.8, CK and CKMB Interp 1.7, Troponin I < 0.02, Total Protein 7.7, Albumin 4.1, Globulin 3.6 H, Albumin/ Globulin Ratio 1.1, D-Dimer < 100, WBC 7.8, RBC 4.35 L, Hgb 13.1 L, Hct 38.5 L, MCV 88.5, RDW 13.3, Plt Count 225, MPV 7.9, Gran % 61.1, Gran # 4.8, Lymphocytes % 30.6, Monocytes % 4.5, Eosinophils % 3.3, Basophils % 0.6, Lymphocytes # 2.4, Monocytes # 0.4, Eosinophils # 0.3, Basophils # 0.1, PUBS MCHC 34.2, MCH 30.2, Alcohols 12 Current Medication Orders Sig/Migue Start time Last Medication Dose Route Stop Time Status Admin Aspirin 325 MG ONCE ONE 02/23 2215 DC 02/23 PO 02/23 Aspirin 0 .STK-MED ONE 02/23 2211 DC .ROUTE Sodium Chloride 10 ML PRN PRN 02/23 2200 AC IV 02/25 2148 Orders Procedure Date/time Status Decision to admit 02/24 0000 Active LIPASE 02/24 2156 Complete DRUG ABUSE SCREEN (TRIAGE) 02/24 2156 Active D-DIMER 02/24 2156 Complete BRAIN NATRIURETIC PEPTIDE 02/24 2156 Complete AMYLASE 02/24 2156 Complete ALCOHOL 02/24 2156 Complete CULTURE, BLOOD 02/23 2153 Active LACTIC ACID 02/23 2151 Complete ELECTROCARDIOGRAM REQUEST 02/23 2149 Active CHEST(2 VIEWS-NOT PORTABLE) 02/23 2149 Active IV SALINE LOCK 02/23 2149 Active CBC WITH AUTO DIFF 02/23 2149 Complete CARDIAC ENZYMES 02/23 2149 Complete CHEM 12 PROFILE 02/23 2149 Complete CM/EKG CM/fashion marketer Rhythm Normal Sinus Rhythm Rate 88 Ectopy No Comments No acute ischemic changes EKG rate, NSR, rhythm, no evid. of ischemic chgs, no ectopy, normal QRS, normal [place], normal EKG, no EKG for comparison, non-spec. ST/Twave chgs, ST elevation, ST depression, LBBB, RBBB, ectopy, abnormal Q waves XRAY/CT/US XRAY/CT/US XRAY chest XR interpretation by reviewed by me Xray Results no infiltrates, normal heart size, normal lung inflation leo Departure Departure Time of Disposition 0000 Disposition Still a Patient Clinical Impression Primary Impression: Chest pain Qualifiers: Chest pain type: unspecified Qualified Code: R07.9 - Chest pain, unspecified Condition STABLE ED Critical Care Critical Care No at 0008
[2017-02-24] VITALS (18 sets, daily range): BP systolic 114–139; BP diastolic 64–81
[2017-02-24] MEDS ORDERED: TRIAMCINOL80 GM/TUBE TP (00:17)
[2017-02-24] MEDS ORDERED: HYDROXYZINE PAM50 MG PO (00:18)
--- OUTSIDE RECORDS SUMMARY | 2017-02-24 00:18 | External Medical Summary Rpt | CCD ---
Author Author Conduent Organization Conduent Address Unknown Phone Unavailable Purpose Continuity of Care Document - through 2016
[2017-02-24] MEDS ORDERED: LOW DOSE ASPIRI81 MG PO (00:19)
--- OUTSIDE RECORDS SUMMARY | 2017-02-24 00:19 | External Medical Summary Rpt | CCD ---
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 Name Role Phone JOEL, MALDONADO Unavailable Unavailable [facility], Unavailable Unavailable [facility] ADAL, ADAL Unavailable Unavailable JESSICA, JESSICA Unavailable Unavailable [facility] Unavailable Unavailable [facility], [facility], Unavailable Unavailable [facility] Unavailable Unavailable [facility], [facility] TERRENCE, TERRENCE Unavailable Unavailable SCALF, SCALF Unavailable Unavailable JOSE D, JOSE D Unavailable [facility]available [facility], Unavailable Unavailable [facility], Unavailable [facility] KAY, KAY Unavailable Unavailable [facility], Unavailable [facility]available [facility] Purpose Continuity of Care Document - 09-08-2016 through 2016 Problems Code Diagnosis DOS Provider Status K219 GASTRO-ESOP 12-22-2016 [facility] REFLUX N EMERGENCY DISEASE PHYS WITHOUT ESOPHAGITIS R071 CHEST PAIN 12-22-2016 [facility] ON N EMERGENCY BREATHING PHYS R0789 OTHER CHEST 12-12-2016 [facility] PA[facility] N EMERGENCY PHYS R079 CHEST PAIN 12-12-2016 [facility] UNSPECIF[facility] RADIOLOGY E785 HYPERLIPIDE 12-08-2016 [facility] SARA PHYSICIANS UNSPECIFIED GROUP I10 ESSENTIAL 12-08-2016 [facility] HYPERTENSIO INC N I119 HYPERTENSIV 12-08-2016 [facility] E HEART PHYSICIANS DISEASE GROUP WITHOUT HEART FAILURE I2510 ASHD ENTERPRISE 12-08-2016 [facility] CORONARY 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 I252 OLD 10-08-2016 [facility] MYOCARDIAL [facility] INFARCTION R072 PRECORDIAL 10-08-2016 [facility] [place] [facility] RADIOLOGY R9431 ABNORMAL 10-08-2016 [facility] IOGRAM MEDICAL G G4733 OBSTRUCTIVE 09-14-2016 [facility] SLEEP [facility] APNEA ADULT INC PEDIATRIC R0602 SHORTNESS 09-14-2016 [facility] OF BREATH PHYSICIANS GROUP Z720 TOBACCO USE 09-14-2016 [facility] Medications Na ND Rx Da Fi [...] 07 08 60 30 00 EA Ac [place] 59 -1 -[address] ti [...] Procedure DOS Code Location Performer Comment RADIOLOGI 13538 [facility] [place] SCALF C 7 RADIOLOGY EXAMINATI ON CHEST SINGLE VIEW FRONTAL BLOOD 49779 [facility] COUNT 7 [facility] COMPLETE INC INC AUTO&[place] [address] [facility] T[facility] THYROXINE 7 [facility] TOTAL INC INC COMPREHEN 26044 B[facility] SIVE 7 [facility] METABOLIC INC INC PANEL COLLECTIO 30862 [facility] T[facility] N VENOUS 7 [facility] BLOOD INC INC VENIPUNCT URE C-REACTIV 73205 [facility] T[facility] E PROTEIN 7 [facility] INC INC ECG 79924 [facility] T[facility] ROUTINE 7 [facility] ECG INC INC W/LEAST 12 LDS TRCG ONLY W/O I&R BILIRUBIN 26718 [facility] DIRECT 7 [facility] INC INC LIPID 49136 [facility] PANEL 7 [facility] INC INC THYROID 19251 B[facility] TOR[facility] HORM 7 [facility] UPTK/THYR INC INC OID HORMONE BINDING RATIO ECG 64259 [facility] ROUTINE 7 [facility] ECG INC INC W/LEAST 12 LDS TRCG ONLY W/O I&R ECG [address] ECG W/LEAST 12 LDS TRCG ONLY W/O I&R COLLECTIO 23660 [facility] N VENOUS [address] [place] [address] [place] [address] [facility] TROPONIN [address] [place] [address] QUANTITAT NICK BLOOD [address] COMPLETE AUTO&AUTO DIFRNTL WBC RADIOLOGI 43231 [facility] [place] MARIO ALBERTO C EXAM 7 RADIOLOGY LD IV CHEST 2 VIEWS FRONTAL&L ATERAL ECG 41470 ZOE JESSICA ROUTINE 7 [facility] ECG MEDICAL W/LEAST G 12 LDS I&R ONLY BASIC [address] PANEL CALCIUM TOTAL TECHNETIU A9502 [facility] T[facility] M TC-99M 7 [facility] TETROFOSM INC INC IN DX PER STUDY DOSE ECHO 99097 [facility] TTHRC R-T 7 [facility] 2D INC INC W/WOM-MOD E COMPL SPEC&COLR D MYOCARDIA 64929 [facility] SRIVASTA L SPECT 7 PHYSICIAN A MULTIPLE S GROUP STUDIES CV STRS 06513 [facility] TST 7 [facility] XERS&/OR INC INC RX CONT ECG TRCG ONLY ECG 91022 [facility] T[facility] ROUTINE 7 [facility] ECG INC INC W/LEAST 12 LDS TRCG ONLY W/O I&R Encounters Encounter Start End Date Code Location Performer Type Date EMERGENCY [address] [facility] DEPT 7 7 [place] VISIT EMERGENCY HIGH PHYS SEVERITY& THREAT FUN EMERGENCY 28729 [facility] DEPT 7 7 [place] VISIT EMERGENCY HIGH PHYS SEVERITY& THREAT FUN OFFICE 75688 [facility] JOSE D [facility] 7 7 PHYSICIAN T VISIT S GROUP 25 MINUTES [facility]OSPITAL [facility] - [place] 7 [facility] OUTPATIEN [facility] - [place] [address] [facility] OUTPATIEN [facility] [address] [facility] [address] [facility] DEPT 7 7 [place] VISIT EMERGENCY HIGH PHYS SEVERITY& THREAT [facility] BRIAN Davalos [address] [facility] OUTPATIEN [facility] BRIAN - 7 [facility] T
--- OUTSIDE RECORDS SUMMARY | 2017-02-24 00:19 | External Medical Summary Rpt | CCD ---
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 Care Marketing Coordinator Name Role Phone JOEL, MALDONADO Unavailable Unavailable [facility], Unavailable Unavailable [facility] ADAL, ADAL Unavailable Unavailable JESSICA, JESSICA Unavailable Unavailable [facility] Unavailable Unavailable INC, [facility], Unavailable Unavailable [facility] Unavailable Unavailable MEDICAL G, [facility] TERRENCE, TERRENCE Unavailable Unavailable SCALF, SCALF Unavailable Unavailable JOSE D, JOSE D Unavailable [facility]available [facility], Unavailable Unavailable [facility], Unavailable Unavailable [facility] KAY, KAY Unavailable Unavailable [facility], Unavailable Unavailable [facility] Purpose Continuity of Care Document - 09-08-2016 through 2016 Problems Code Diagnosis DOS Provider Status K219 GASTRO-ESOP 12-22-2016 [facility] REFLUX N EMERGENCY DISEASE PHYS WITHOUT ESOPHAGITIS R071 CHEST PAIN 12-22-2016 [facility] N EMERGENCY BREATHING PHYS R0789 OTHER CHEST 12-12-2016 [facility] PAIN N EMERGENCY PHYS R079 CHEST PAIN 12-12-2016 [facility] [place] UNSPECIFIED RADIOLOGY E785 HYPERLIPIDE 12-08-2016 [facility] SARA PHYSICIANS UNSPECIFIED GROUP I10 ESSENTIAL 12-08-2016 [facility] HYPERTENSIO INC N I119 HYPERTENSIV 12-08-2016 [facility] E HEART PHYSICIANS DISEASE GROUP WITHOUT HEART FAILURE I2510 [facility] [place] 12-08-2016 [facility] CORONARY 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 I252 OLD 10-08-2016 [facility] MYOCARDIAL [facility] INFARCTION R072 PRECORDIAL 10-08-2016 [facility] [place] RADIOLOGY R9431 ABNORMAL 10-08-2016 [facility] IOGRAM MEDICAL G G4733 OBSTRUCTIVE 09-14-2016 [facility] APNEA ADULT INC PEDIATRIC R0602 SHORTNESS 09-14-2016 [facility] OF BREATH PHYSICIANS GROUP Z720 TOBACCO USE 09-14-2016 [facility] Medications Na ND Rx Da [...] 07 08 60 30 00 EA Ac ID 59 -1 -[address] ti [...] Procedure DOS Code Location Performer Comment RADIOLOGI 73481 [facility] [place] [facility]AL[facility] 7 RADIOLOGY EXAMINATI ON CHEST SINGLE VIEW FRONTAL BLOOD 47861 [facility] T[facility] COUNT 7 [facility] COMPLETE INC INC AUTO&[place] [address] B[facility] TORRES THYROXINE 7 [facility]OS[facility] TOTAL INC INC COMPREHEN 07211 B[facility] TORRES SIVE 7 [facility] HOSP METABOLIC INC INC PANEL COLLECTIO 18961 B[facility] TORRES N VENOUS 7 [facility] BLOOD INC INC VENIPUNCT URE C-REACTIV 62960 [facility] TORRES E PROTEIN 7 [facility] HOSP INC INC ECG 67018 BRI[facility] TORRES ROUTINE 7 [facility] HOSP ECG INC INC W/LEAST 12 LDS TRCG ONLY W/O I&R BILIRUBIN 49683 [facility] TORRES DIRECT 7 [facility] HOSP INC INC LIPID 92352 [facility] TORRES PANEL 7 [facility] HOS[facility] INC INC THYROID 53843 BRIAN TORRES HORM 7 [facility] HOSP UPTK/THYR INC INC OID HORMONE BINDING RATIO ECG 07110 [facility] TORRES ROUTINE 7 [facility] ECG INC INC W/LEAST 12 LDS TRCG ONLY W/O I&R ECG [address] ECG W/LEAST 12 LDS TRCG ONLY W/O I&R COLLECTIO 16070 [facility] N VENOUS [address] [place] [address] [place] [address] [facility] TROPONIN [address] [place] [address] QUANTITAT NICK BLOOD [address] COMPLETE AUTO&AUTO DIFRNTL WBC RADIOLOGI 63940 [facility] [place] MARIO ALBERTO C EXAM 7 RADIOLOGY LD IV CHEST 2 VIEWS FRONTAL&L ATERAL ECG 29698 ZOE JESSICA ROUTINE 7 [facility] ECG MEDICAL W/LEAST G 12 LDS I&R ONLY BASIC [address] PANEL CALCIUM TOTAL TECHNETIU A9502 [facility] TORRES M TC-99M 7 [facility] TETROFOSM INC INC IN DX PER STUDY DOSE ECHO 61871 B[facility]AN [facility]AN TTHRC R-T 7 [facility] HOSP 2D INC INC W/WOM-MOD E COMPL SPEC&COLR D MYOCARDIA 00718 [facility] SRIVASTA L SPECT 7 PHYSICIAN A MULTIPLE S GROUP STUDIES CV STRS 74309 B[facility]AN TST 7 [facility] HOSP XERS&/OR INC INC RX CONT ECG TRCG ONLY ECG 22795 [facility] TORRES ROUTINE 7 [facility] ECG INC INC W/LEAST 12 LDS TRCG ONLY W/O I&R Encounters Encounter Start End Date Code Location Performer Type Date EMERGENCY [address] [facility] DEPT 7 7 [place] VISIT EMERGENCY HIGH PHYS SEVERITY& THREAT FUN EMERGENCY 07859 [facility] DEPT 7 7 [place] VISIT EMERGENCY HIGH PHYS SEVERITY& THREAT FUN OFFICE 98796 [facility] JOSE D [facility]INT [place] 7 7 PHYSICIAN T VISIT S GROUP 25 MINUTES [facility]PITAL [facility] - [place] 7 [facility] OUTPATIEN [facility] - [place] 7 [facility] [address] [facility] [address] [facility] DEPT 7 7 [place] VISIT EMERGENCY HIGH PHYS SEVERITY& THREAT [facility] RBIAN Davalos 7 [facility] OUTPATIEN [facility] BRIAN - 7 [facility] T
[2017-02-24] MEDS ORDERED: CARVEDILOL12.5 MG PO (00:20)
--- OUTSIDE RECORDS SUMMARY | 2017-02-24 00:20 | External Medical Summary Rpt ---
Author Author KATRIN Franc, [employer] Organization [employer] Address Unknown Phone Unavailable Results Amylase [Enzymatic activity/volume] in Serum or Plasma Observa Value Referen Units Interpr Notes Date tion ce etation Range Amylase 25 - 115 U/L Normal No Feb 23 [Enzymati informati 2016 c on in 10:00 PM activity/ source volume] data in Serum or Plasma Natriutietic peptide B [Mass/volume] in Serum or Plasma Observa Value Referen Units Interpr Notes Date tion ce etation Range Natriutie 0 - 100 pg/mL Normal No Feb 23 tic inform2016 peptide B on in 10:00 PM source [Mass/vol data ume] in Serum or Plasma Lipase [Enzymatic activity/volume] in Serum or Plasma Observa Value Referen Units Interpr Notes Date tion ce etation Range Lipase 73 - 393 U/L Normal No Feb 23 [Enzymati informati 2016 c on in 10:00 PM activity/ source volume] data in Serum or Plasma Lactate [Moles/volume] in Blood Observa Value Referen Units Interpr Notes Date ti ce etation Range Lactate 0.4 - 2.0 mmol/L Normal No Feb 23 [Moles/vo informati 2016 lume] in on in 10:00 PM Blood source data CBC W Auto Differential panel in Blood Observa Value Referen Units Interpr Notes Date ti ce etation Range Basophils 0 - 0.2 K/MM3 Normal No Feb 23 inform2016 [#/volume on in 10:00 PM ] in source Blood by data Automated count Basophils 0.1 - 2.0 % Normal No Feb 23 informati 2016 leukocyte on in 10:00 PM s in source Blood by data Automated count Eosinophi 0.0 - 0.4 K/mm3 Normal No Feb 23 ls informati 2016 [#/volume on in 10:00 PM ] in source Blood by data Automated count Eosinophi 0.1 - % Normal No Feb 23 ls/100 12.0 informati 2016 leukocyte on in 10:00 PM s in source Blood by data Automated count Granulocy 1.3 - 8.0 K/mm3 Normal No Feb 23 aydin inform2016 [#/volume on in 10:00 PM ] in source Blood by data Automated count Granulocy 37.0 - % Normal No Feb 23 aydin/100 80.0 inform2016 leukocyte on in 10:00 PM s in source Blood by data Automated count Hematocri 42.0 - % Low No Feb 23 t [Volume 52.0 informati 2016 on in 10:00 PM Fraction] source of Blood data Hemoglobi 14.1 - g/dL Low No Feb 23 n 18.0 informati 2016 [Mass/vol on in 10:00 PM ume] in source Blood data Lymphocyt 0.7 - 4.5 K/mm3 Normal No Feb 23 es informati 2016 [#/volume on in 10:00 PM ] in source Unspecifi data ed specimen by Automated count Lymphocyt 10 - 50 % Normal No Feb 23 es informati 2016 [#/volume on in 10:00 PM ] in source Unspecifi data ed specimen by Automated count Erythrocy 27 - 31.2 pg Normal No Feb 23 te mean inform2016 corpuscul on in 10:00 PM ar source hemoglobi data n [Entitic mass] Erythrocy 31.8 - g/dl Normal No Feb 23 te mean 35.4 inform2016 corpuscul on in 10:00 PM ar source hemoglobi data n concentra tion [Mass/vol ume] by Automated count Erythrocy 82.2 - fl Normal No Feb 23 te mean 97.8 inform2016 corpuscul on in 10:00 PM ar volume source [Entitic data volume] by Automated count Monocytes 0.1 - 1.0 K/mm3 Normal No Feb 23 inform2016 [#/volume on in 10:00 PM ] in source Blood by data Automated count Monocytes 1.7 - 9.3 % Normal No Feb 23 /100 inform2016 leukocyte on in 10:00 PM s in source Blood by data Automated count Platelet 7.4 - fl Normal No Feb 23 mean 10.4 informati 2016 volume on in 10:00 PM [Entitic source volume] data in Blood by Automated count Platelets 142 - 424 K/mm3 Normal No Feb 23 inform2016 [#/volume on in 10:00 PM ] in source Blood data Erythrocy 4.6 - 6.2 M/mm3 Low No Feb 23 aydin 2016 [#/volume on in 10:00 PM ] in source Amniotic data fluid Erythrocy 11.5 - % Normal No Feb 23 te 17.5 2016 distribut on in 10:00 PM ion width source [Entitic data volume] by Automated count Leukocyte 4.8 - K/MM3 Normal No Feb 23 s 10.8 2016 [#/volume on in 10:00 PM ] in source Blood data Ethanol [Mass/volume] in Serum or Plasma Observa Value Referen Units Interpr Notes Date tion ce etation Range Ethanol 0 - 99 mg/dL Normal ANY Feb 23 [Mass/vol ALCOHOL > 2017 ume] in OR = 80 10:00 PM Serum or MG/DL IS Plasma CONSIDERE D LEGALLYIN TOXICATED UNDER [place] [employer] LAW. CBC W Auto Differential panel in Blood Observa Value Referen Units Interpr Notes Date tion ce etation Range Basophils 0 - 0.2 K/MM3 Normal No Dec 082016 [#/volume on in 12:59 PM ] in source Blood by data Automated count Basophils 0.1 - 2.0 % Normal No Dec 082016 leukocyte on in 12:59 PM s in [...] 4.5 K/mm3 Normal No Dec 08 es inform2016 [#/volume on in 12:59 PM ] in source Unspecifi data ed specimen by Automated count Lymphocyt 10 - 50 % Normal No Dec 08 es inform2016 [#/volume on in 12:59 PM ] in source Unspecifi data ed specimen by Automated count Erythrocy 27 - 31.2 pg Normal No Dec 08 te mean inform2016 corpuscul on in 12:59 PM ar [...] - 1.0 K/mm3 Normal No Dec 08 informati 2016 [#/volume on in 12:59 PM ] in source Blood by data Automated count Monocytes 1.7 - 9.3 % Normal No Dec 08 /100 inform 2017 leukocyte on in 12:59 PM s in source Blood by data Automated count Platelet 7.4 - fl Normal No Dec 08 mean 10.4 informati 2016 volume on in 12:59 PM [Entitic source volume] data in Blood by Automated count Platelets 142 - 424 K/mm3 Normal No Dec 08 inform2016 [#/volume on in 12:59 PM ] in source Blood data Erythrocy 4.6 - 6.2 M/mm3 Normal No Dec 08 aydin informati 2016 [#/volume on in 12:59 PM ] in source Amniotic data fluid Erythrocy 11.5 - % Normal No Dec 08 te 17.5 informati 2016 distribut on in 12:59 PM ion width source [Entitic data volume] by Automated count Leukocyte 4.8 - K/MM3 Normal No Dec 08 s 10.8 informati 2016 [#/volume on in 12:59 PM ] in source Blood data
--- OUTSIDE RECORDS SUMMARY | 2017-02-24 00:20 | External Medical Summary Rpt | CCD ---
Demographics Preferred Language Maltese Marital Status Unknown Yarsanism Affiliation Unknown Race Unknown Ethnic Group Unknown Author Author , KATRIN WILKES Address Unknown Phone Immunization No patient found.
--- OUTSIDE RECORDS SUMMARY | 2017-02-24 00:20 | External Medical Summary Rpt | CCD ---
Demographics Preferred Language Swedish Marital Status Unknown Congregation Affiliation Unknown Race Unknown Ethnic Group Unknown Author Author , KATRIN WILKES Address Unknown Phone Immunization No patient found.
--- OUTSIDE RECORDS SUMMARY | 2017-02-24 00:20 | External Medical Summary Rpt ---
[...] CONSIDERE D LEGALLYIN TOXICATED UNDER [place] [employer] [place]. CBC W Auto Differential panel in [...]
[2017-02-24] MEDS ORDERED: ATORVASTATIN CA40 MG PO (00:21)
[2017-02-24] MEDS ORDERED: LOSARTAN POTAS100 MG PO (00:22)
[2017-02-24] MEDS ORDERED: LANSOPRAZOLE30 MG PO (00:23)
[2017-02-24 04:01] LABS: AMPHETAMINES/METAMPHETAMINES NEGATIVE ng/mL (<1000)
--- NOTE | 2017-02-24 07:08 | PHARMACY CLINIC NOTE ---
Patient Demographics Patient Demographics Admission date: 02/24/17 Date: 02/24/17 Time: 0707 Allergies Coded Allergies: No Known Allergies (02/24/17) HEIGHT- FT: 6 IN: 0.00 K.851 VTE General Information Labs: Laboratory Tests 02/23 2200 Hematology Hgb (14.1 - 18.0 g/dL) 13.1 L Hct (42.0 - 52.0 %) 38.5 L Plt Count (142 - 424 K/mm3) 225 Disclaimer The following section includes nursing documentation that has been pulled in for pharmacy review. Patient's VTE score: 2 Patient's VTE Risk: VERY LOW RISK Clinical trial participant? No VTE prophylaxis NQF [id number] VTE prophylaxis ordered? Yes Type of prophylaxis/treatment: TAHMINA at 0707
--- NOTE | 2017-02-24 07:26 | RADIOLOGY REPORT PS360 ---
CHEST(2 VIEWS-NOT PORTABLE) HISTORY: Chest pain ME 2006 ORDERING PHYSICIAN: Ramy Sanchez MD PATIENT AGE: 46 years COMPARISON: None available FINDINGS: The cardiomediastinal silhouette and pulmonary vascularity are within normal limits. The lungs are clear without infiltrates, suspicious nodules, or pleural effusions. No acute bony abnormalities. IMPRESSION: Negative chest, no acute finding
--- NOTE | 2017-02-24 07:26 | RADIOLOGY REPORT PS360 ---
CHEST(2 VIEWS-NOT PORTABLE) HISTORY: Chest pain RI 2006 ORDERING PHYSICIAN: Ramy Sanchez MD PATIENT AGE: 46 years COMPARISON: None available FINDINGS: The cardiomediastinal silhouette and pulmonary vascularity are within normal limits. The lungs are clear without infiltrates, suspicious nodules, or pleural effusions. No acute bony abnormalities. IMPRESSION: Negative chest, no acute finding
--- NOTE | 2017-02-24 09:52 | CONSULT NOTE ---
Standard Demographics Patient Demo Date of Consultation: 02/24/17 Referring Provider: Allen Sanchez MD Reason for Consultation: Chest pain/Angina pectoris PRIMARY DIAGNOSIS: CHEST PAIN Problem list Problem list: 1. CAD A. History of NE with stenting about 2006 at 2. Tobacco use, previously 2-3 ppd, started smoking at age 18 3. HTN 4. HLD, on statin 5. History of Suboxone addiction in past History of present illness: History of present illness: 46 YO WM with known CAD and ischemic CM (NE/Cardiac Arrest and stents 10 yrs ago ) by echo and stress myoview in August 2016 without evidence of reversible ischemia but with extensive scar in the anteroapical, apex and anterolateral weber with EF of 30-40% was admitted through ER for recurrent chest pain. Pain described as left sided pressure with radiation to arm and hand with numbness in fingertips. Symptoms occur with rest and with activity at times and have prompted several visits to ER in the last month. Symptoms have not improved with increased PPI use. Cardiology consulted for evaluation. EKG is sinus with anterolateral infarct pattern. Troponins have returned normal. Past Medical History: General: Hypertension Yes CVA No Seizures No TB No COPD No Asthma No Diabetes No Angina Yes NE Yes Hyperlipidemia Yes Cancer No MRSA No GB Disease No Additional hx STENTS PLACED IN 2006 Past Surgical HX: Previous Surgery?N Allergies Coded Allergies: No Known Allergies (02/24/17) Home medications: Reported Medications TRIAMCINOLONE ACET 0.1% (Triamcinolone Acetonide) 1 MELINDA TP DAILY #80 Hydroxyzine Pamoate 50 MG PO TIDP PRN ANXIETY #40 Aspirin (Aspirin EC) 81 MG PO DAILY #30 Carvedilol 12.5 MG PO BID #60 Atorvastatin Calcium 40 MG PO QHS #30 Losartan Potassium (Losartan 100MG) 100 MG PO DAILY #30 Lansoprazole (Lansoprazole) 30 MG PO DAILY #14 Current Medications: Current Medications Atorvastatin Calcium 40 MG QHS PO Fentanyl Citrate 25 MCG PRN PRN IV Fentanyl Citrate 50 MCG PRN PRN IV Flumazenil 0.2 MG PRN PRN IV Heparin Sodium (Beef Lung) 5,000 UNITS PRN PRN IV Heparin Sodium/Sodium Chloride 3,000 UNITS PRN PRN IV Lidocaine HCl 20 ML ONCE ONE IJ Midazolam HCl 1 MG PRN PRN IV Midazolam HCl 1 MG PRN PRN IV Naloxone HCl 0.4 MG [id number] PRN IV Nitroglycerin 800 MCG PRN PRN IV Verapamil HCl 5 MG PRN PRN IV Aspirin 81 MG DAILY PO Sodium Chloride 10 ML PRN PRN IV Influenza Virus Vaccine Quadrival 0.5 ML PRN PRN IM Nicotine 21 MG DAILYP PRN TD Aspirin 325 MG ONCE ONE PO (DC) Aspirin 0 .STK-MED ONE .ROUTE (DC) Sodium Chloride 10 ML PRN PRN IV Immunization HX DT/Tetanus 5-10 Years Flu Refused Pneumonia Never Had TB Test in last year No Family history Family HX Family Hx Insignificant No Diabetes No CAD Yes Hypertension Yes Hyperlipidemia Yes Cancer Yes TB No Social Hx: Smoking HX Tobacco Yes Type Cigarettes Packs/day < 1 PACK Are you/the child exposed to second-hand smoke: No Alcohol Alcohol: No Hx of Drug Use Drug Use? No Patien't marital status is single Review of systems: Constitutional No: no symptoms reported. Respiratory SOB with excertion. Cardiovascular see HPI, chest pain Gastrointestinal/Abdominal see HPI Genitourinary No: no symptoms reported. Musculoskeletal back pain. Neurological Yes: numbness, tingling. Exam: Admission Vital Signs: 1ST Vital Signs Result Date Time Pulse Ox 96 02/23 2139 B/P 153/93 02/23 2139 Temp 99.2 02/23 2139 Pulse 78 02/23 2139 Resp 18 02/23 2139 O2 Delivery ROOM AIR 02/24 0048 Last Vital Signs: Vital Signs Result Date Time Pulse Ox 97 02/24 917 B/P 125/79 02/24 917 Temp 98.0 02/24 917 Pulse 64 02/24 917 Resp 20 02/24 917 O2 Delivery ROOM AIR 02/24 07 Exam General appearance: alert, awake, no acute distress Neck: no carotid bruit, no JVD Cardiovascular: regular rate & rhythm, no murmur Respiratory: clear to auscultation, good air movement ABD: soft, no tenderness Extremities: moves all, no peripheral edema Neuro: alert, intact, oriented Laboratory data: Laboratory Tests 02/24/17 0815: Creatine Kinase 157, CK-MB (CK-2) Rel Index 0.6, CK and CKMB Interp 1.0, Troponin I < 0.02 02/24/17 0330: Opiates Screen NEGATIVE, Urine Methadone Screen NEGATIVE, Barbiturates NEGATIVE, Phencyclidine Screen NEGATIVE, Amphetamines Screen NEGATIVE, Benzodiazepines Screen NEGATIVE, Cocaine Screen NEGATIVE, Marijuana (THC) Screen NEGATIVE 02/24/17 0200: Creatine Kinase 182, CK-MB (CK-2) Rel Index 0.6, CK and CKMB Interp 1.1, Troponin I < 0.02 02/23/172199: Lactic Acid 1.0 02/23/172199: B-Natriuretic Peptide 59, Amylase 37, Lipase 169 02/23/172199: Sodium 143, Potassium 4.2, Chloride 105, Carbon Dioxide 29, BUN 19 H, Creatinine 1.2, Estimated Creat Clear 142, Estimated GFR (MDRD) 65, Glucose 109 H, Calcium 8.6, Total Bilirubin 0.3, AST 16, ALT 33, Alkaline Phosphatase 70, Creatine Kinase 213, CK-MB (CK-2) Rel Index 0.8, CK and CKMB Interp 1.7, Troponin I < 0.02, Total Protein 7.7, Albumin 4.1, Globulin 3.6 H, Albumin/ Globulin Ratio 1.1, D-Dimer < 100, WBC 7.8, RBC 4.35 L, Hgb 13.1 L, Hct 38.5 L, MCV 88.5, RDW 13.3, Plt Count 225, MPV 7.9, Gran % 61.1, Gran # 4.8, Lymphocytes % 30.6, Monocytes % 4.5, Eosinophils % 3.3, Basophils % 0.6, Lymphocytes # 2.4, Monocytes # 0.4, Eosinophils # 0.3, Basophils # 0.1, PUBS MCHC 34.2, MCH 30.2, Alcohols 12 Microbiology Date/Time Procedure - Status Source Growth 02/23 2200 Anaerobic Blood Culture - RECD BLOOD 02/23 2200 Aerobic Blood Culture - RECD BLOOD 02/23 2200 Anaerobic Blood Culture - RECD BLOOD 02/23 2200 Aerobic Blood Culture - RECD BLOOD 02/23 100 Anaerobic Blood Culture - CAN BLOOD Cancelled: Cancelled via OE: wrong order 02/23 100 Aerobic Blood Culture - CAN BLOOD Cancelled: Cancelled via OE: wrong order 02/23 100 Anaerobic Blood Culture - CAN BLOOD Cancelled: Cancelled via OE: wrong order 02/23 100 Aerobic Blood Culture - CAN BLOOD Cancelled: Cancelled via OE: wrong order Plan: Assessment: 1. Recurrent Chest pain with known CAD/Cardiac Arrest and subsequent stenting in 2006, concerned for UAP class 3-4. JAE score of 4 (risk factors, ASA use, CAD and recurrent chest pain). Continue ASA, Coreg and KAREN inhibitor. Recommend cardiac cath today. 2. Ischemic CM 3. Tobacco use 4. GERD 5. History of substance abuse (suboxone) Recommendations: See Above. at [id number]
--- NOTE | 2017-02-24 13:00 | RADIOLOGY REPORT PS360 ---
CARDIAC CATHETERIZATION DATE OF CATHETERIZATION:02/24/2017 11:31 AM PROCEDURES: 1. Left heart catheterization 2. Left ventriculogram 3. Selective coronary angiogram INDICATION FOR TEST: 1. Unstable angina 2. Risk factors for coronary artery disease Informed consent was obtained prior to the procedure. COMPLICATIONS: None ESTIMATED BLOOD LOSS: Less than 10 ml. TECHNIQUE: One percent lidocaine used to anesthetize the right anterior aspect of the wrist. The right radial artery was accessed via the Seldinger technique. A 6 [place] sheath was placed in the right radial artery. 2.5 mg of verapamil, 800 mcg of nitroglycerin and 5000 U Heparin were given through the arterial sheath. The Agnieszka catheter was also used to perform left heart catheterization and left ventriculography. At the end of the procedure the patient was transferred to the post-op holding area in stable condition for arterial sheath removal. ANGIOGRAPHIC RESULTS: 1. The left main artery normal 2. The left anterior descending artery normal 3. The circumflex artery dominant normal 4. The right coronary artery normal 5. The ATKINSON ventriculogram reveals normal 65% 6. The left ventricular end-diastolic pressure millimeters mercury IMPRESSION: 1. Normal coronary arteries. 2. Normal ejection fraction 3. Normal left ventricular end-diastolic pressure PLAN: 1. Evaluation noncardiac chest pain 2. Risk factor modification
--- NOTE | 2017-02-24 15:25 | Discharge Summary Standard ---
Demographics: Admit date: 02/23/17 Chief complaint: chest pain PRIMARY DIAGNOSIS: CHEST PAIN Allergies: Coded Allergies: No Known Allergies (02/24/17) History of present illness: History of present illness: 46 YO WM with known CAD and ischemic CM ([place]/Cardiac Arrest and stents 10 yrs ago ) by echo and stress myoview in August 2016 without evidence of reversible ischemia but with extensive scar in the anteroapical, apex and anterolateral weber with EF of 30-40% was admitted through ER for recurrent chest pain. Pain described as left sided pressure with radiation to arm and hand with numbness in fingertips. Symptoms occur with rest and with activity at times and have prompted several visits to ER in the last month. Symptoms have not improved with increased PPI use. Cardiology consulted for evaluation. EKG is sinus with anterolateral infarct pattern. Troponins have returned normal. Past medical history: Family HX Diabetes No CAD Yes Hypertension Yes Hyperlipidemia Yes Cancer Yes TB No Immunization HX DT/Tetanus 5-10 Years Ago Flu Refused Pneumonia Never Had TB Test in last year No General CAD? Yes Angina: Yes NH: Yes Hypertension? Yes Hyperlipidemia? Yes CHF? No DVT? No PE? No COPD? No Asthma? No Anemia? No GERD? Yes Gastric ulcers? No GI Bleed? No Hernia? No Thyroid Problems? No Hypothyroidism? No CVA? No Seizures? No Diabetes? No Renal Insuffiency? No UTI? No Stones? No BPH? No GB Disease: No Nephritic Syndrome? No Asplenia? No Hepatitis? No Sickle Cell Disease? No Arthritis? No Migraines? No Cataracts? No Glaucoma? No MRSA? No HIV? No TB? No Anxiety? Yes Depression? Yes Cancer? No More? Yes Additional hx: STENTS PLACED IN 2006 Past Surgical HX Previous Surgery?N Current home meds: Reported Medications TRIAMCINOLONE ACET 0.1% (Triamcinolone Acetonide) 1 MELINDA TP DAILY #80 Hydroxyzine Pamoate 50 MG PO TIDP PRN ANXIETY #40 Aspirin (Aspirin EC) 81 MG PO DAILY #30 Carvedilol 12.5 MG PO BID #60 Atorvastatin Calcium 40 MG PO QHS #30 Losartan Potassium (Losartan 100MG) 100 MG PO DAILY #30 Lansoprazole (Lansoprazole) 30 MG PO DAILY #14 Social Hx: Smoking HX Tobacco Yes Type Cigarettes Packs/day < 1 PACK Are you/the child exposed to second-hand smoke: No Alcohol Alcohol: No Hx of Drug Use Drug Use? No Review of systems: Constitutional see HPI. Respiratory see HPI. Cardiovascular see HPI, chest pain Gastrointestinal/Abdominal No no symptoms reported Genitourinary No: no symptoms reported. Musculoskeletal No: no symptoms reported. Neurological No: see HPI. Exam: Lab data for last 24 hours: Laboratory Tests 02/24/17 0815: Creatine Kinase 157, CK-MB (CK-2) Rel Index 0.6, CK and CKMB Interp 1.0, Troponin I < 0.02 02/24/17 0330: Opiates Screen NEGATIVE, Urine Methadone Screen NEGATIVE, Barbiturates NEGATIVE, Phencyclidine Screen NEGATIVE, Amphetamines Screen NEGATIVE, Benzodiazepines Screen NEGATIVE, Cocaine Screen NEGATIVE, Marijuana (THC) Screen NEGATIVE 02/24/17 0200: Creatine Kinase 182, CK-MB (CK-2) Rel Index 0.6, CK and CKMB Interp 1.1, Troponin I < 0.02 02/23/170: Lactic Acid 1.0 02/23/170: B-Natriuretic Peptide 59, Amylase 37, Lipase 169 02/23/170: Sodium 143, Potassium 4.2, Chloride 105, Carbon Dioxide 29, BUN 19 H, Creatinine 1.2, Estimated Creat Clear 142, Estimated GFR (MDRD) 65, Glucose 109 H, Calcium 8.6, Total Bilirubin 0.3, AST 16, ALT 33, Alkaline Phosphatase 70, Creatine Kinase 213, CK-MB (CK-2) Rel Index 0.8, CK and CKMB Interp 1.7, Troponin I < 0.02, Total Protein 7.7, Albumin 4.1, Globulin 3.6 H, Albumin/ Globulin Ratio 1.1, D-Dimer < 100, WBC 7.8, RBC 4.35 L, Hgb 13.1 L, Hct 38.5 L, MCV 88.5, RDW 13.3, Plt Count 225, MPV 7.9, Gran % 61.1, Gran # 4.8, Lymphocytes % 30.6, Monocytes % 4.5, Eosinophils % 3.3, Basophils % 0.6, Lymphocytes # 2.4, Monocytes # 0.4, Eosinophils # 0.3, Basophils # 0.1, PUBS MCHC 34.2, MCH 30.2, Alcohols 12 Microbiology 02/23 2200 BLOOD: Anaerobic Blood Culture - RECD 02/23 2200 BLOOD: Aerobic Blood Culture - RECD 02/23 2200 BLOOD: Anaerobic Blood Culture - RECD 02/23 2200 BLOOD: Aerobic Blood Culture - RECD Admission vital signs: 1ST Vital Signs Result Date Time Pulse Ox 96 02/23 2139 B/P 153/93 02/23 2139 Temp 99.2 02/23 2139 Pulse 78 02/23 2139 Resp 18 02/23 2139 O2 Delivery ROOM AIR 02/25 48 Exam General appearance: normal appearance, awake, no acute distress Eyes: normal exam ENT: normal exam Neck: normal inspection Cardiovascular: normal exam, regular rate & rhythm, no murmur Respiratory: normal exam, aerating well, clear to auscultation, chest non- tender, good air movement ABD: normal exam, soft Genitourinary: normal voiding & quantity Extremities: normal exam, moves all, warm Musculoskeletal: normal exam Skin: normal exam, intact, warm Neuro: normal exam, alert, intact, oriented Hospital Course Hospital Course: cardiology consult, cardiac work up. heart cath results: IMPRESSION: 1. Normal coronary arteries. 2. Normal ejection fraction 3. Normal left ventricular end-diastolic pressure PLAN: 1. Evaluation noncardiac chest pain 2. Risk factor modification dc home with follow up in office Medications Medications: Discharge meds are as noted. Follow up Follow up in office in: 5 DAYS with: NATI ESCOBEDO Comment: rafi will round later, ok to dc per cardiology at [id number]
== END 2017-02-24 16:20 | disposition home or self-care (01) ==
LOC: ER 21:38 → 2ND 02-24 00:15
PROVIDERS: Emergency Medicine; Internal Medicine
PROC: B2111ZZ Fluoroscopy of Multiple Coronary Arteries using Low Osmolar Contrast (ICD-10-PCS; 2017-02-24)
PROC: B2151ZZ Fluoroscopy of Left Heart using Low Osmolar Contrast (ICD-10-PCS; 2017-02-24)
PROC: 4A023N7 Measurement of Cardiac Sampling and Pressure, Left Heart, Percutaneous Approach (ICD-10-PCS; principal; 2017-02-24 14:00)
DX: I11.9 Hypertensive heart disease without heart failure (principal); R07.9 Chest pain, unspecified; Z72.0 Tobacco use; Z95.5 Presence of coronary angioplasty implant and graft; I25.2 Old myocardial infarction
CPT/HCPCS: C1725; C1760; C1769; G0378; J1644; Q9967

== ENCOUNTER 2017-02-27 01:06 | Emergency (ER) | payer MEDICAID ==
[~2017-02-27] VITALS: Ht 182.9 cm; Wt 128.8 kg
[~2017-02-27 01:06] MED LIST: ATORVASTATIN CA40 MG PO; CARVEDILOL12.5 MG PO; HYDROXYZINE PAM50 MG PO; LANSOPRAZOLE30 MG PO; LOSARTAN POTAS100 MG PO; LOW DOSE ASPIRI81 MG PO; TRIAMCINOL80 GM/TUBE TP
[2017-02-27] MEDS ORDERED: NEXIUM20 MG PO (01:14)
[2017-02-27 01:28] LABS: HEMOGLOBIN 13.9 g/dL (14.1-18.0); LYMPH % 35.4 % (10-50)
[2017-02-27 01:55] LABS: BUN 20 mg/dL (7-18); GFR (ESTIMATED) 65 ML/MIN (>60)
--- NOTE | 2017-02-27 02:23 | Emergency Room Report ---
History of Present Illness Time Seen by MD Valdez Presenting Problem in Triage Pt arrived:Walked Presenting Problem:C/O BACK PAIN THAT RADIATES INTO CHEST AND LEFT SHOULDER. DENIES ANY SOB REPORTS HEART CATH ON 02/24/17. REPORTS CATH WAS CLEAN Onset of symptoms date/time:02/26/17 or onset unknown for: Treatment Prior to Arrival: BABY [employer]ELOP[employer] MECH[employer]IC Provided by:SELF Sepsis Risk Assessment: Temp: 97.6 B/P: 115/71 MAP: 114 Pulse: 60 Resp: 16 Recent fever? N Clinical Suspician of Infection? N Mental Status: 1 - Regular (Normal Baseline) Sepsis Risk:Low Sepsis Risk Have you (or family members/close friends) recently traveled outside the [place]? N If Yes, where/when: Have you had exposure to infectious disease within the past month? N TB? Other? Specify: Source patient, RN notes reviewed, family, old records Exam Limitations no limitations Comment pt with acute upper back pain with rad to chest pain with recent neg card cath Cardiac Chest Pain Chest pain indicative of cardiac No Timing/Duration this evening Severity moderate ALLERGIES Coded Allergies: No Known Allergies (02/24/17) Home Medications Reported Medications TRIAMCINOLONE ACET 0.1% (Triamcinolone Acetonide) 1 MELINDA TP DAILY #80 Hydroxyzine Pamoate 50 MG PO TIDP PRN ANXIETY #40 Aspirin (Aspirin EC) 81 MG PO DAILY #30 Carvedilol 12.5 MG PO BID #60 Atorvastatin Calcium 40 MG PO QHS #30 Losartan Potassium (Losartan 100MG) 100 MG PO DAILY #30 Lansoprazole (Lansoprazole) 30 MG PO DAILY #14 Esomeprazole Magnesium (Nexium) 20 MG PO DAILY History Medical History General CAD? Yes Angina: Yes PR: Yes Hypertension? Yes Hyperlipidemia? Yes CHF? No DVT? No PE? No COPD? No Asthma? No Anemia? No GERD? Yes Gastric ulcers? No GI Bleed? No Hernia? No Thyroid Problems? No Hypothyroidism? No CVA? No Seizures? No Diabetes? No Renal Insuffiency? No End Stage Renal Disease? No UTI? No Stones? No BPH? No GB Disease: No Nephritic Syndrome? No Asplenia? No Hepatitis? No Sickle Cell Disease? No Arthritis? No Migraines? No Cataracts? No Glaucoma? No MRSA? No HIV? No TB? No Anxiety? Yes Depression? Yes Cancer? No More? Yes Additional hx: STENTS PLACED IN 2006 Immunization Hx DT/Tetanus 5-10 Years Ago Flu Refused Pneumonia Refuses Surgical Hx Previous Surgery?Y CARDIAC CATH 02/24/17 CARDIAC CATH 2006 Family History Family Hx Diabetes No CAD Yes Hypertension Yes Hyperlipidemia Yes Cancer Yes TB No Social History Smoking Hx Smoker: Current Every Day Smoker Tobacco: Yes Type Cigarettes Packs/day < 1 Pack Alcohol Alcohol: No Drugs none Review of Systems All Other Systems Reviewed and Negative Constitutional denies fever Eyes denies drainage ENT denies: ear discharge, epistaxis, throat pain. Respiratory denies cough, denies shortness of breath, denies wheezing Cardiovascular see HPI, chest pain, denies palpitations, denies syncope Gastrointestinal denies abdominal pain, denies diarrhea, denies vomiting Genitourinary denies: dysuria, frequency, hesitancy, hematuria. Musculoskeletal denies back pain, denies joint pain, denies neck pain Skin denies rash Psychiatric/Neurological denies anxiety, denies seizure Physical Exam Vital Signs Vital Signs Date Time Temp Pulse Resp B/P Pulse O2 O2 Flow FiO2 Ox Delivery Rate 02/27 0335 98.1 80 16 122/81 92 02/27 0250 98.2 80 16 106/70 93 02/27 0211 97.6 60 16 115/71 93 02/27 0108 98.5 82 18 156/94 96 - WBC >12,000 or <4,000 or 10% bands? 2 or more SIRS Criteria Met? B/P:122/81 MAP:114 Creatinine >2.0? UA output<0.5ml/kg/hr for 2 hrs? Platelet count >100,000? Lactate >2.0mmol/1? INR >1.2 or PTT > than 60 sec? Evidence of Organ Dysfunction? Provider documented clinical suspician of infection? N Sepsis Criteria Count: 0 Sepsis Risk: Low Sepsis Risk General Appearance no apparent distress Eye Exam - bilateral eye PERRL, bilateral eye EOMI Ear, Nose, Throat normal ENT inspection Neck supple Respiratory Status No: respiratory distress. Lung Sounds bilateral: lungs clear. 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 No Results/Orders Laboratory Tests 02/27/17104: Amylase 35, Lipase 136 02/27/17104: Sodium 141, Potassium 4.0, Chloride 103, Carbon Dioxide 27, BUN 20 H, Creatinine 1.2, Estimated Creat Clear 140, Estimated GFR (MDRD) 65, Glucose 102, Calcium 9.1, Total Bilirubin 0.4, AST 21, ALT 33, Alkaline Phosphatase 70, Creatine Kinase 264, CK-MB (CK-2) Rel Index 0.7, CK and CKMB Interp 1.8, Troponin I < 0.02, Total Protein 8.2, Albumin 4.5, Globulin 3.7 H, Albumin/ Globulin Ratio 1.2, WBC 8.5, RBC 4.66, Hgb 13.9 L, Hct 40.8 L, MCV 87.7, RDW 13.2, Plt Count 230, MPV 7.6, Gran % 56.8, Gran # 4.8, Lymphocytes % 35.4, Monocytes % 4.0, Eosinophils % 3.3, Basophils % 0.6, Lymphocytes # 3.0, Monocytes # 0.3, Eosinophils # 0.3, Basophils # 0.1, PUBS MCHC 34.0, MCH 29.8 Current Medication Orders Sig/Migue Start time Last Medication Dose Route Stop Time Status Admin Aspirin 243 MG ONCE ONE 02/27 130 DC 02/27 PO 02/27 Aspirin 0 .STK-MED ONE 02/28 120 DC .ROUTE Aspirin 0 .STK-MED ONE 02/27 109 DC .ROUTE Orders Procedure Date/time Status DIET-NOTHING BY MOUTH 02/[address] ABD & PELVIS W/O CONTRAST 02/[address] ABD/PELVIS REQ 02/27 121 Active LIPASE 02/28 116 Complete AMYLASE 02/28 116 Complete 12 LEAD EKG-BESSON (INITIAL) 02/27 109 Active ELECTROCARDIOGRAM REQUEST 02/27 109 Active CHEST(2 VIEWS-NOT PORTABLE) 02/27 109 Active IV SALINE LOCK 02/27 109 Active NEUROLOGY STROKE PHYSICIAN 02/27 109 Active CBC WITH AUTO DIFF 02/27 109 Complete CARDIAC ENZYMES 02/27 109 Complete CHEM 12 PROFILE 02/27 109 Complete CM/EKG CM/patient account specialist Rhythm Normal Sinus Rhythm EKG compared w/(date of old), non-spec. ST/Twave chgs XRAY/CT/US XRAY/CT/US 1 XRAY chest XR interpretation by reviewed by me Xray Results normal/NAD XRAY/CT/US 2 CT abdomen, pelvis CT interpretation by discussed w/radiologist Time results known: 341 CT Results normal/NAD Departure Departure Time of Disposition 033 Disposition DC Home or Self Care(routine) Clinical Impression Primary Impression: Chest pain Qualifiers: Chest pain type: unspecified Qualified Code: R07.9 - Chest pain, unspecified Secondary Impressions: Abdominal pain Qualifiers: Abdominal location: unspecified location Qualified Code: R10.9 - Unspecified abdominal pain Condition STABLE Referrals Daniel CHANEL,Ramy Thomas (Family) Patient Instructions DI for Atypical Chest Pain Additional Instructions see pcp for follow up ED Critical Care Critical Care No at 0342
[2017-02-27 03:42] VITALS: BP 122/81
--- NOTE | 2017-02-27 06:19 | RADIOLOGY REPORT PS360 ---
CHEST(2 VIEWS-NOT PORTABLE) HISTORY: Chest pain CP ORDERING PHYSICIAN: Dara Sanchez MD PATIENT AGE: 46 years COMPARISON: 02/23/2017 FINDINGS: The cardiomediastinal silhouette and pulmonary vascularity are within normal limits. The lungs are clear without infiltrates, suspicious nodules, or pleural effusions. No acute bony abnormalities. IMPRESSION: No change with no acute finding
--- NOTE | 2017-02-27 10:45 | RADIOLOGY REPORT PS360 ---
CT ABD PELVIS W/O CONTRAST CLINICAL INDICATION: Left flank pain ABD PAIN ORDERING PHYSICIAN: Dara Sanchez MD PATIENT AGE: 46 years COMPARISON: None TECHNIQUE: Axial images obtained with sagittal and coronal reformats. PROCEDURE: Oral Contrast: None IV Contrast: None . FINDINGS: Lower thorax: No acute finding ABDOMEN: Liver: Mild hepatic steatosis Gallbladder: Nondistended. No radio opaque stones. Pancreas: No masses or peripancreatic fluid collections. Spleen: Unremarkable. Adrenals: Unremarkable Kidneys/ureters: No masses. No renal calculi. No hydronephrosis. No perinephric fluid collections. No ureteral dilatation or obvious ureteral calculi. Stomach bowel: Nondistended. No obvious mass or thickening. Appendix: No evidence of appendicitis. PELVIS: Reproductive: Unremarkable Bladder: Nondistended. No obvious stones or masses. ABDOMEN & PELVIS: Peritoneum: No abnormal fluid collections. No obvious inflammatory changes. No free air. Lymph nodes: No enlarged lymph nodes apparent. Vasculature: No evidence of abdominal aortic aneurysm. No retroperitoneal hemorrhage evident. Bones: No acute fracture IMPRESSION: No acute intra-abdominal or pelvic findings Fatty liver
== END 2017-02-27 03:46 | disposition home or self-care (01) ==
LOC: ER 01:06
PROVIDERS: Emergency Medicine
DX: R07.9 Chest pain, unspecified (principal); R10.9 Unspecified abdominal pain; I10 Essential (primary) hypertension; E78.5 Hyperlipidemia, unspecified; K21.9 Gastro-esophageal reflux disease without esophagitis; F41.8 Other specified anxiety disorders; F17.210 Nicotine dependence, cigarettes, uncomplicated